=== PATIENT | male | born 1955 | race Caucasian/White ===

== ENCOUNTER 2017-08-21 07:33 | Inpatient (IN) | payer BC ==
[2017-08-21] MEDS ORDERED: VALACYCLOVIR 500 MG TAB ONE (08:13)
[2017-08-21] MEDS ORDERED: ASPIRIN 325 MG TAB ONE (08:33)
[2017-08-21] MEDS ORDERED: METOPROLOL TAR 50 MG TAB ONE (08:33)
[2017-08-21] MEDS ORDERED: ENOXAPARIN 100 MG/ML SYR SQ ONE (08:34)
[2017-08-21] MEDS ORDERED: METOPROLOL TARTRATE 5 MG/5 ML INJ IV ONE (08:34)
[2017-08-21] MEDS ORDERED: ENOXAPARIN 30 MG/0.3 ML SQ ONE (08:35)
[2017-08-21 08:47] LABS: Absolute Lymphocytes (CBC) 1.4 K/uL (0.7-4.9); Absolute Monocytes 0.6 K/uL (0.1-1.3); Absolute Neutrophil 4.6 K/uL (1.8-8.0); Basophils % 0.9 % (0-1.3); Eosinophils % 2.7 % (0-4.4); Hematocrit 41.2 % (39.6-49.0); Lymphocytes % 19.9 % (15.3-44.8); MCH 30.2 pg (27.0-35.0); MCV 91.4 fL (80-100); Monocytes % 9.2 % (3.3-12.3); RBC Red Blood Cell Count 4.51 M/uL (4.33-5.43)
[2017-08-21 08:49] LABS: Protime INR 0.92
[2017-08-21 09:14] LABS: Albumin 3.5 g/dL (3.4-5.0); Bilirubin Direct 0.1 mg/dL (0-0.2); Bilirubin Total 0.4 mg/dL (0.2-1.0); Magnesium 1.7 mg/dL (1.8-2.4); Potassium 3.8 mmol/L (3.5-5.1); Protein, Total 7.2 g/dL (6.4-8.2)
[2017-08-21 09:15] LABS: CKMB Creatine Kinase MB 10.3 ng/mL (0.3-3.6)
[2017-08-21] MEDS ORDERED: MAGNESIUM SULFATE 1 gm IVPB 1 GM/100 ML BAG IV ONE (09:45)
[2017-08-21] MEDS ORDERED: DIGOXIN 0.25 MG/ML AMP ONE (09:46)
--- NOTE | 2017-08-21 09:58 | RAD REPORT ---
EXAM DESCRIPTION: RAD - Chest Single View - 08/21/2017 8:49 am CLINICAL HISTORY: Tachycardia, shortness of breath COMPARISON: September 2010 TECHNIQUE: AP portable chest image was obtained 0844 hours . FINDINGS: No peripheral mass or consolidation. Lung markings are not significantly different from th e comparison. Heart and vasculature are normal. No measurable pleural effusion and no pneumothorax. N o gross bony abnormality seen. No acute aortic findings suspected. IMPRESSION: No acute cardiopulmonary process. Patient has a mild baseline interstitial pattern that is similar to the 2011 exam.
--- NOTE | 2017-08-21 10:23 | ER ---
Nurse's Notes [facility] Name: Rush Palomino Age: 62 yrs Sex: Male : 1955 Arrival Date: 08/21/2017 Time: 07:37 Bed 14 Private MD: out of town, doctor Diagnosis: Atrial fibrillation and flutter-new onset;Zoster [herpes zoster] Presentation: 08/21 07:46 Presenting complaint: Patient states: right eye swelling and redness that began Tuesday. aa5 Pt states "I also have some rash spots on my head so I my thinks it's shingles". 07:46 Transition of care: patient was not received from another setting of care. Onset of aa5 symptoms was July 2017. Risk Assessment: Do you want to hurt yourself or someone else? Patient reports no desire to harm self or others. Initial Sepsis Screen: Does the patient meet any 2 criteria? No. Patient's initial sepsis screen is negative. Does the patient have a suspected source of infection? No. Patient's initial sepsis screen is negative. Care prior to arrival: None. 07:46 Method Of Arrival: Ambulatory aa5 07:46 Acuity: JASKARAN 3 aa5 Historical: - Allergies: 07:46 No Known Allergies; aa5 - PMHx: 07:46 Diabetes - NIDDM; Gout; Hep C (completed treatment); aa5 - PSHx: 07:46 None; aa5 - Immunization history:: Adult Immunizations unknown. - Social history:: Smoking status: Patient/guardian denies using tobacco. - Ebola Screening: : No symptoms or risks identified at this time. Screenin:15 Abuse screen: Denies threats or abuse. Nutritional screening: No deficits noted. aa5 Tuberculosis screening: No symptoms or risk factors identified. Fall Risk None identified. Assessment: 07:50 General: Appears comfortable, Behavior is calm, cooperative. Pain: Complains of pain in aa5 top of head and right eye Pain radiates to right side of neck Pain currently is 2 out of 10 on a pain scale. Quality of pain is described as burning, Pain began 2-3 days ago. Is continuous. Neuro: Level of Consciousness is awake, alert, obeys commands, Oriented to person, place, time, situation. Cardiovascular: Denies chest pain, shortness of breath, Heart tones S1 S2 present Rhythm is regular. Respiratory: Airway is patent Respiratory effort is even, unlabored, Respiratory pattern is regular, symmetrical, Breath sounds are clear bilaterally. GI: Abdomen is obese, Bowel sounds present X 4 quads. Abd is soft and non tender X 4 quads. : No signs and/or symptoms were reported regarding the genitourinary system. EENT: No signs and/or symptoms were reported regarding the EENT system. Derm: Skin is pink, warm \\T\\ dry. Redness and swelling noted to right upper eyelid and 2 very small red raised areas noted to top of head. Musculoskeletal: Range of motion: intact in all extremities. 08:25 Reassessment: Patient and/or family updated on plan of care and expected duration. Pain aa5 level reassessed. Patient is alert, oriented x 3, equal unlabored respirations, skin warm/dry/pink. Cardiovascular: Rhythm is atrial flutter. 08:45 Reassessment: Patient and/or family updated on plan of care and expected duration. Pain aa5 level reassessed. Patient is alert, oriented x 3, equal unlabored respirations, skin warm/dry/pink. Cardiovascular: Rhythm is atrial flutter. 08:45 Pain: Pain currently is 2 out of 10 on a pain scale. aa5 09:40 Reassessment: Patient and/or family updated on plan of care and expected duration. Pain aa5 level reassessed. Patient is alert, oriented x 3, equal unlabored respirations, skin warm/dry/pink. A-fib on monitor, rhythm irregular . 11:00 Reassessment: Patient and/or family updated on plan of care and expected duration. Pain aa5 level reassessed. Patient is alert, oriented x 3, equal unlabored respirations, skin warm/dry/pink. 11:00 Reassessment: Awaiting eye exam by FLOOR COVERING PRINTER, pt notified of wait time. . Pain: Pain currently aa5 is 2 out of 10 on a pain scale. Cardiovascular: Rhythm is atrial fibrillation. 12:00 Reassessment: Patient and/or family updated on plan of care and expected duration. Pain aa5 level reassessed. Patient is alert, oriented x 3, equal unlabored respirations, skin warm/dry/pink. Patient denies pain at this time. 12:00 Cardiovascular: Rhythm is atrial fibrillation. aa5 13:00 Reassessment: Dr. Deng at bedside . aa5 13:06 Reassessment: Report given to CHERYL Miller. aa5 15:38 Reassessment: Patient appears in no apparent distress at this time. No changes from tl3 previously documented assessment. Patient and/or family updated on plan of care and expected duration. Pain level reassessed. Patient is alert, oriented x 3, equal unlabored respirations, skin warm/dry/pink. provided sandwich and drink for pt and . Vital Signs: 07:46 BP 130 / 88; Pulse 138; Resp 18 S; Temp 98.4(O); Pulse Ox 96% on R/A; Weight 125.65 kg aa5 (R); Height 6 ft. 1 in. (185.42 cm) (R); Pain 2/10; 08:39 BP 140 / 100; Pulse 136; Resp 16 S; Pulse Ox 96% on R/A; aa5 08:44 BP 113 / 79; Pulse 124; Resp 18 S; Pulse Ox 97% on R/A; aa5 08:55 BP 106 / 82; Pulse 115; Resp 16 S; Pulse Ox 96% on R/A; aa5 09:20 BP 114 / 85; Pulse 130; Resp 16 S; Pulse Ox 97% on R/A; aa5 09:40 Pulse 124; Resp 16 S; Pulse Ox 98% on R/A; aa5 10:05 BP 121 / 49; Pulse 82; Resp 14 S; Pulse Ox 97% on R/A; aa5 11:00 BP 139 / 76; Pulse 93; Resp 16 S; Pulse Ox 97% on R/A; aa5 12:00 BP 148 / 88; Pulse 92; Resp 16 S; Pulse Ox 97% on R/A; aa5 15:50 BP 141 / 92; Pulse 82; Resp 18; Pulse Ox 97% ; tl3 07:46 Body Mass Index 36.55 (125.65 kg, 185.42 cm) aa5 Visual Acuity: 12:05 Left Eye Visual acuity 20/30, ; Right Eye Visual acuity 20/20, ; Both Eyes Visual aa5 acuity 20/15; Without Lenses; ED Course: 07:37 Patient arrived in ED. mr 07:37 out of town, doctor is Private Physician. mr 07:46 Arm band placed on Patient placed in an exam room, on a stretcher. aa5 07:47 Joe Curry NP is PHCP. pm1 07:47 David Salinas MD is Attending Physician. pm1 07:50 Grace oLwe, CHERYL is Primary Nurse. aa5 08:00 Patient has correct armband on for positive identification. Placed in gown. Bed in low aa5 position. Call light in reach. Side rails up X2. security monitor on. Pulse ox on. NIBP on. 08:06 Triage completed. aa5 08:21 EKG done, by ED staff, reviewed by Joe Curry NP. jb1 08:25 Initial lab(s) drawn, by me, sent to lab. Inserted saline lock: 20 gauge in right aa5 forearm, using aseptic technique. Blood collected. 08:48 X-ray completed. Portable x-ray completed in exam room. Patient tolerated procedure la2 well. 08:49 XRAY Chest (1 view) In Process Unspecified. EDMS 08:55 No provider procedures requiring assistance completed. aa5 10:22 Manuela Metz MD is Hospitalizing Provider. pm1 11:50 Assist provider with eye exam of right eye. using fluorescein stain, Performed by aa5 Joe Curry NP Patient tolerated well. 11:51 Hospitalizing Provider role handed off by Manuela Metz MD pm1 11:51 Jacque Deng MD is Hospitalizing Provider. pm1 15:50 Patient admitted, IV remains in place. tl3 Administered Medications: 00:45 Drug: Lopressor 5 mg Route: IVP; Site: right forearm; aa5 08:15 Drug: Valtrex 1000 mg Route: PO; aa5 09:43 Follow up: Response: No adverse reaction aa5 08:33 Drug: Lovenox 1 mg/kg Route: Sub-Q; Site: right lower abdomen; aa5 09:43 Follow up: Response: No adverse reaction aa5 08:33 Drug: Lopressor (metoprolol TARTRATE) 50 mg Route: PO; aa5 09:43 Follow up: Response: No adverse reaction aa5 08:33 Drug: Aspirin 325 mg Route: PO; aa5 09:43 Follow up: Response: No adverse reaction aa5 08:35 Drug: Lopressor 5 mg Route: IVP; Site: right forearm; aa5 08:40 Drug: Lopressor 5 mg Route: IVP; Site: right forearm; aa5 09:00 Follow up: Response: No adverse reaction aa 09:40 Drug: Magnesium Sulfate 1 grams Route: IVPB; Infused Over: 1 hrs; Site: right forearm; aa5 10:40 Follow up: Response: No adverse reaction; IV Status: Completed infusion 09:43 Drug: Digoxin 0.5 mg Route: IVP; Site: right forearm; aa5 10:00 Follow up: Response: No adverse reaction aa5 11:50 Drug: Tetracaine Drops 0.5 % 1 drops {Note: administered by FLOOR COVERING PRINTER during eye exam.} Route: aa5 Ophthalmic; Site: right eye; Outcome: 10:22 Decision to Hospitalize by Provider. pm1 15:50 Admitted to Tele accompanied by tech, via wheelchair, with chart, Report called to nori3 CHERYL Whitaker 15:50 Condition: stable 15:50 Instructed on the need for admit, Demonstrated understanding of instructions. 15:52 Patient left the ED. tl3 Signatures: Dispatcher [employer] EDMS Robin Gee jb1 Leticia Mtz Audri, RN RN aa5 Joe Curry NP FLOOR COVERING PRINTER pm1 Fatoumata Maldonado la2 Angela Valle RN RN tl3 Corrections: (The following items were deleted from the chart) 12:16 07:50 Derm: Skin is pink, warm \\T\\ dry. aa5 aa5 15:50 15:38 BP 148 / 88; Pulse 48bpm; Resp 18bpm; Pulse Ox 97% RA; tl3 tl3
--- NOTE | 2017-08-21 10:23 | EDPHYS ---
Physician Documentation [facility] Name: Rush Palomino Age: 62 yrs Sex: Male : 1955 Arrival Date: 08/21/2017 Time: 07:37 Bed 14 Private MD: out of town, doctor ED Physician David Salinas HPI: 08/21 09:00 This 62 yrs old Male presents to ER via Ambulatory with complaints of Right pm1 Eye Swelling. 09:00 to the right eye, Swelling. Onset: The symptoms/episode began/occurred 2 day(s) ago. pm1 Duration: the symptoms are continuous. Aggravated by nothing. Alleviated by nothing. Associated signs and symptoms: Pertinent negatives: fever, visual changes. Patient does not utilize any form of vision correction. Severity of symptoms: in the emergency department the symptoms are worse. The patient has not experienced similar symptoms in the past. 3 months ago for unrelated complaint. Patient with swelling to right upper eyelid, facial pain, and rash on the right side of his scalp. Patient concerned that it might be shingles. No visual changes. No fever. Patient reported that at his PCP visit 3 months ago he was told that he had an elevated heart rate. He dismissed it due to running and rushing to his appointment. Has felt generalized weakness for the past 1 month and attributed it to getting older. Denies chest pain, shortness of breath, dizziness. Historical: - Allergies: 07:46 No Known Allergies; aa5 - PMHx: 07:46 Diabetes - NIDDM; Gout; Hep C (completed treatment); aa5 - PSHx: 07:46 None; aa5 - Immunization history:: Adult Immunizations unknown. - Social history:: Smoking status: Patient/guardian denies using tobacco. - Ebola Screening: : No symptoms or risks identified at this time. ROS: 09:00 Constitutional: Negative for fever, chills, and weight loss, ENT: Negative for injury, pm1 pain, and discharge, Neck: Negative for injury, pain, and swelling. 09:00 Respiratory: Negative for shortness of breath, cough, wheezing, and pleuritic chest pain, Abdomen/GI: Negative for abdominal pain, nausea, vomiting, diarrhea, and constipation, Back: Negative for injury and pain, : Negative for injury, bleeding, discharge, and swelling, MS/Extremity: Negative for injury and deformity, Skin: Negative for injury, rash, and discoloration. 09:00 Eyes: Positive for swelling, of the right upper eyelid, Negative for itching, matting, photophobia, redness, vision loss, visual disturbance. 09:00 Cardiovascular: Negative for chest pain, edema, orthopnea, palpitations. 09:00 Neuro: Positive for weakness, Negative for headache, numbness, seizure activity, syncope, near syncope. Exam: 09:00 Constitutional: This is a well developed, well nourished patient who is awake, alert, pm1 and in no acute distress. Head/Face: Normocephalic, atraumatic. ENT: Nares patent. No nasal discharge, no septal abnormalities noted. Tympanic membranes are normal and external auditory canals are clear. Oropharynx with no redness, swelling, or masses, exudates, or evidence of obstruction, uvula midline. Mucous membranes moist. Neck: Trachea midline, no thyromegaly or masses palpated, and no cervical lymphadenopathy. Supple, full range of motion without nuchal rigidity, or vertebral point tenderness. No Meningismus. 09:00 Chest/axilla: Normal chest wall appearance and motion. Nontender with no deformity. No lesions are appreciated. Cardiovascular: Regular rate and rhythm with a normal S1 and S2. No gallops, murmurs, or rubs. Normal PMI, no JVD. No pulse deficits. Respiratory: Lungs have equal breath sounds bilaterally, clear to auscultation and percussion. No rales, rhonchi or wheezes noted. No increased work of breathing, no retractions or nasal flaring. 09:00 Abdomen/GI: Soft, non-tender, with normal bowel sounds. No distension or tympany. No guarding or rebound. No evidence of tenderness throughout. Back: No spinal tenderness. No costovertebral tenderness. Full range of motion. Skin: Warm, dry with normal turgor. Normal color with no rashes, no lesions, and no evidence of cellulitis. MS/ Extremity: Pulses equal, no cyanosis. Neurovascular intact. Full, normal range of motion. 09:00 Eyes: Periorbital structures: appear normal, Pupils: no acute changes, equal, round, and reactive to light and accomodation, Extraocular movements: intact throughout, Conjunctiva: normal, no acute changes, Lids and lashes: edema, Right upper eyelid. 09:00 ECG was reviewed by the Attending Physician. aflutter 2:1 09:00 Neuro: Orientation: is normal, Motor: is normal, moves all fours. 11:45 Visual Acuity: I have reviewed the nursing documentation. pm1 11:45 Eyes: Corneas: abrasion, is not appreciated, foreign body, is not appreciated, a fluorescein strip employed to appreciate the findings, No lesions. No herpes simplex dendritic keratitis. Vital Signs: 07:46 BP 130 / 88; Pulse 138; Resp 18 S; Temp 98.4(O); Pulse Ox 96% on R/A; Weight 125.65 kg aa5 (R); Height 6 ft. 1 in. (185.42 cm) (R); Pain 2/10; 08:39 BP 140 / 100; Pulse 136; Resp 16 S; Pulse Ox 96% on R/A; aa5 08:44 BP 113 / 79; Pulse 124; Resp 18 S; Pulse Ox 97% on R/A; aa5 08:55 BP 106 / 82; Pulse 115; Resp 16 S; Pulse Ox 96% on R/A; aa5 09:20 BP 114 / 85; Pulse 130; Resp 16 S; Pulse Ox 97% on R/A; aa5 09:40 Pulse 124; Resp 16 S; Pulse Ox 98% on R/A; aa5 10:05 BP 121 / 49; Pulse 82; Resp 14 S; Pulse Ox 97% on R/A; aa5 11:00 BP 139 / 76; Pulse 93; Resp 16 S; Pulse Ox 97% on R/A; aa5 12:00 BP 148 / 88; Pulse 92; Resp 16 S; Pulse Ox 97% on R/A; aa5 15:50 BP 141 / 92; Pulse 82; Resp 18; Pulse Ox 97% ; tl3 07:46 Body Mass Index 36.55 (125.65 kg, 185.42 cm) aa5 Visual Acuity: 12:05 Left Eye Visual acuity 20/30, ; Right Eye Visual acuity 20/20, ; Both Eyes Visual aa5 acuity 20/15; Without Lenses; MDM: 08:01 Patient medically screened. pm1 08:21 Data reviewed: vital signs. Data interpreted: Pulse oximetry: on room air is 96 %. pm1 Interpretation: normal. 10:20 Counseling: I had a detailed discussion with the patient and/or guardian regarding: the pm1 historical points, exam findings, and any diagnostic results supporting the discharge/admit diagnosis, lab results, radiology results, the need for outpatient follow up, to return to the emergency department if symptoms worsen or persist or if there are any questions or concerns that arise at home. 11:51 Physician consultation: Jacque Deng MD was called at 11:51, was contacted at 11:51, pm1 regarding admission, patient's condition, and will see patient in ED. 08/21 08:02 Order name: Basic Metabolic Panel; Complete Time: 09:19 pm08/21 08:02 Order name: CBC with Diff; Complete Time: 09:19 pm08/21 08:02 Order name: Ckmb; Complete Time: 09:19 pm08/21 08:02 Order name: CPK; Complete Time: 09:19 pm08/21 08:02 Order name: LFT's; Complete Time: 09:19 pm08/21 08:02 Order name: Magnesium; Complete Time: 09:19 pm08/21 08:02 Order name: PT-INR; Complete Time: 09:19 pm08/21 08:02 Order name: Ptt, Activated; Complete Time: 09:19 pm08/21 08:02 Order name: Troponin (emerg Dept Use Only); Complete Time: 09:19 pm08/21 08:02 Order name: XRAY Chest (1 view); Complete Time: 10:03 pm08/21 08:02 Order name: EKG; Complete Time: 08:03 pm08/21 08:02 Order name: Cardiac monitoring; Complete Time: 08:09 pm08/21 08:02 Order name: EKG - Nurse/Tech; Complete Time: 08:21 pm08/21 08:02 Order name: IV Saline Lock; Complete Time: 08:48 pm08/21 08:02 Order name: Labs collected and sent; Complete Time: 08:48 pm08/21 08:02 Order name: O2 Per Protocol; Complete Time: 08:10 pm08/21 08:02 Order name: O2 Sat Monitoring; Complete Time: 08:09 pm08/21 10:25 Order name: Visual Acuity; Complete Time: 12:07 pm08/21 10:25 Order name: Eye Tray; Complete Time: 10:37 pm1 08/21 10:25 Order name: Fluoresene Opth strip; Complete Time: 10:37 pm1 08/21 13:48 Order name: Diet Regular; Complete Time: 13:49 tl3 Administered Medications: 00:45 Drug: Lopressor 5 mg Route: IVP; Site: right forearm; aa5 08:15 Drug: Valtrex 1000 mg Route: PO; aa5 09:43 Follow up: Response: No adverse reaction aa5 08:33 Drug: Lovenox 1 mg/kg Route: Sub-Q; Site: right lower abdomen; aa5 09:43 Follow up: Response: No adverse reaction aa5 08:33 Drug: Lopressor (metoprolol TARTRATE) 50 mg Route: PO; aa5 09:43 Follow up: Response: No adverse reaction aa5 08:33 Drug: Aspirin 325 mg Route: PO; aa5 09:43 Follow up: Response: No adverse reaction aa5 08:35 Drug: Lopressor 5 mg Route: IVP; Site: right forearm; aa5 08:40 Drug: Lopressor 5 mg Route: IVP; Site: right forearm; aa5 09:00 Follow up: Response: No adverse reaction aa5 09:40 Drug: Magnesium Sulfate 1 grams Route: IVPB; Infused Over: 1 hrs; Site: right forearm; aa5 10:40 Follow up: Response: No adverse reaction; IV Status: Completed infusion aa5 09:43 Drug: Digoxin 0.5 mg Route: IVP; Site: right forearm; aa5 10:00 Follow up: Response: No adverse reaction aa5 11:50 Drug: Tetracaine Drops 0.5 % 1 drops {Note: administered by SEISMOGRAPH OBSERVER during eye exam.} Route: aa5 Ophthalmic; Site: right eye; Disposition: 08/21/17 10:22 Hospitalization ordered by Jacque Deng for Inpatient Admission. Preliminary diagnosis are Atrial fibrillation and flutter - new onset, Zoster [herpes zoster]. - Bed requested for Telemetry/MedSurg (Inpatient). - Status is Inpatient Admission. tl3 - Condition is Stable. - Problem is new. - Symptoms have improved. UTI on Admission? No Addendum: 08/22/2017 16:10 Co-signature as Attending Physician, David Salinas MD I agree with the assessment and c to plan of care. Signatures: Dispatcher [employer] EDDavid Tanner MD MD cha Williams, Irene, RN RN iw Grace Lowe RN RN aa5 Joe Curry NP SEISMOGRAPH OBSERVER pm1 Angela Valle, RN RN tl3 Corrections: (The following items were deleted from the chart) 08/21 11:51 10:22 Hospitalization Ordered by Manuela Metz MD for Inpatient Admission. pm1 Preliminary diagnosis is Atrial fibrillation and flutter - new onset; Zoster [herpes zoster]. Bed requested for Telemetry/MedSurg (Inpatient). Status is Inpatient Admission. Condition is Stable. Problem is new. Symptoms have improved. UTI on Admission? No. pm1 13:24 11:51 08/21/2017 10:22 Hospitalization Ordered by Jacque Deng MD for Inpatient iw Admission. Preliminary diagnosis is Atrial fibrillation and flutter - new onset; Zoster [herpes zoster]. Bed requested for Telemetry/MedSurg (Inpatient). Status is Inpatient Admission. Condition is Stable. Problem is new. Symptoms have improved. UTI on Admission? No. pm1 15:52 13:24 08/21/2017 10:22 Hospitalization Ordered by Jacque Deng MD for Inpatient tl3 Admission. Preliminary diagnosis is Atrial fibrillation and flutter - new onset; Zoster [herpes zoster]. Bed requested for Telemetry/MedSurg (Inpatient). Status is Inpatient Admission. Condition is Stable. Problem is new. Symptoms have improved. UTI on Admission? No. iw
[2017-08-21] MEDS ORDERED: TETRACAINE HCL 0.5% 2ML OPTH ONE (10:26)
[2017-08-21] MEDS ORDERED: FLUORESCEIN SODIUM 0.6 MG/WRAP ONE (10:26)
--- NOTE | 2017-08-21 13:55 | P.HP ---
Certification for Inpatient Patient admitted to: Inpatient With expected LOS: >2 Midnights Patient will require the following post-hospital care: None Practitioner: I am a practitioner with admitting privileges, knowledge of patient current condition, hospital course, and medical plan of care. Services: Services provided to patient in accordance with Admission requirements found in Title 42 Section 412.3 of the Code of Federal Regulations Patient History Date of Service: 08/21/17 Primary Care Provider: PATTERN STAMPER at Dr [facility] Reason for admission: Afib with RVR History of Present Illness: 62 y/o M with PMHX of DM type 2 and gout who presented to the ER as he noticed swelling and redness of the right eye orbit. Pt states that he thought it was shingles and thus decided to come to the ER. the Swelling and redness started about 2 to 3 days ago and now started having pain there as well. Pt also complains of having generalized weakness for over 2 to 3 weeks and states he went to go f.u with PCP 1 week ago and had lab test done which were consistent with Low testosterone and thus was started on that. No other complains to offer. In the ER pt was found to have Afib with RVR and thus Medicine was consulted to admit the patient for further care. Allergies No Known Allergies Allergy (Unverified 08/21/17 12:31) Home medications list reviewed: Yes - Past Medical/Surgical History Has patient received pneumonia vaccine in the past: No Diabetic: Yes -: Gout -: Type 2 Dm -: None - Family History Family History: Reviewed- Non-Contributory - Social History Smoking Status: Never smoker Alcohol use: No Caffeine use: No Place of Residence: Home Review of Systems General: As per HPI Physical Examination - Physical Exam General: Alert, In no apparent distress HEENT: Atraumatic, Other (Right eye with Swelling and redness. No vesicle noted. ) Respiratory: Clear to auscultation bilaterally, Normal air movement Cardiovascular: Normal S1 S2, Abnormal pulses, Irregular heart rate/rhythm Gastrointestinal: Normal bowel sounds, Soft and benign, Non-distended, No tenderness Musculoskeletal: No tenderness Integumentary: No rashes Neurological: Normal gait, Normal speech, Normal strength at 5/5 x4 extr, Normal tone, Normal affect Lymphatics: No axilla or inguinal lymphadenopathy - Studies Laboratory Data (last 24 hrs) 06/24/18 08:25: PT 10.9, INR 0.92, APTT 26.1 08/21/17 08:25: WBC 6.9, Hgb 13.6, Hct 41.2, Plt Count 187 08/21/17 08:25: Sodium 136, Potassium 3.8, BUN 14, Creatinine 1.00, Glucose 262 H, Magnesium 1.7 L, Total Bilirubin 0.4, AST 29, ALT 40, Alkaline Phosphatase 44 L Assessment and Plan - Problems (Diagnosis) (1) Atrial fibrillation with RVR Current Visit: Yes Status: Acute Plan: New onset Afib with RVR. -S/P Lopressor and digoxin in the ER. Which helped control the rate but patient still remains in Afib. -Cardiology consulted. Appreciated Reccs -Echo -Metoprolol 50mg BID -Digoxin 0.25mg Daily -Lovenox BID -Cardiac Tele -Monitor for 24 hrs. (2) Shingles Current Visit: Yes Status: Acute Plan: Shingles on the right eye -Acyclovir 800mg 5xday -Gabapentin for pain. Qualifiers: Herpes zoster complications: without complications Qualified Code(s): B02.9 - Zoster without complications (3) Gout Current Visit: Yes Status: Chronic Plan: Will Restart home medication Qualifiers: Gout site: unspecified site Chronicity: unspecified (4) Diabetes Current Visit: Yes Status: Chronic Plan: ISS for now Qualifiers: Diabetes mellitus type: type 2 Diabetes mellitus chcf insulin use: without regulatory attorney use Diabetes mellitus complication status: without complication Qualified Code(s): E11.9 - Type 2 diabetes mellitus without complications (5) Obesity Current Visit: Yes Status: Chronic Plan: Educated on Diet and exercise Qualifiers: Obesity type: due to excess calories Serious obesity comorbidity presence: without serious comorbidity Discharge Plan: Home Plan to discharge in: 48 Hours - Advance Directives Does patient have a Living Will: No Does patient have a Durable POA for Healthcare: No - Code Status/Comfort Care Code Status Assessed: Yes Critical Care: No
[2017-08-21] MEDS ORDERED: ONDANSETRON 4 MG/2 ML VIAL IV PRN (16:31)
[2017-08-21 17:32] LABS: CKMB Creatine Kinase MB 8.2 ng/mL (0.3-3.6); Thyroid Stimulating Hormone 1.61 uIU/mL (0.36-3.74)
[2017-08-21] MEDS: INSULIN -REGULAR HUMAN 50 UNIT/0.5 ML ML SQ SCH ×2 (17:33→21:49)
[2017-08-21] MEDS: NA CHLORIDE 0.9% 1,000 ML IV SCH (17:35)
[2017-08-21] MEDS: ACYCLOVIR 400 MG TABLET PO SCH ×2 (17:37→20:38)
[2017-08-21] MEDS: METOPROLOL XL 50 MG TAB PO SCH (17:38)
[2017-08-21] MEDS: ACETAMINOPHEN 500 MG TAB PO PRN (18:40)
[2017-08-21] MEDS: GABAPENTIN 300 MG CAP PO SCH (20:38)
[2017-08-21 21:29] LABS: Urine Appearance CLEAR; Urine Bilirubin NEGATIVE (NEG); Urine Blood NEGATIVE (NEG); Urine Color YELLOW; Urine Glucose NEGATIVE (NEG); Urine Protein NEGATIVE (NEG); Urine Specific Gravity 1.025 (1.005-1.030)
[2017-08-21 21:32] LABS: Urine Microscopic Reflex NO UMIC
[2017-08-22 02:09] LABS: CKMB Creatine Kinase MB 8.5 ng/mL (0.3-3.6)
[2017-08-22] MEDS: NA CHLORIDE 0.9% 1,000 ML IV SCH ×3 (03:03→20:37)
[2017-08-22 04:20] LABS: Absolute Monocytes 0.6 K/uL (0.1-1.3); Absolute Neutrophil 3.5 K/uL (1.8-8.0); Basophils % 0.9 % (0-1.3); Eosinophils % 3.2 % (0-4.4); Hematocrit 40.9 % (39.6-49.0); Lymphocytes % 31.5 % (15.3-44.8); MCH 30.1 pg (27.0-35.0); MCV 92.2 fL (80-100); MPV 11.1 fL (7.6-11.3); Monocytes % 9.9 % (3.3-12.3); RBC Red Blood Cell Count 4.44 M/uL (4.33-5.43)
[2017-08-22 04:36] LABS: Albumin 3.4 g/dL (3.4-5.0); Bilirubin Total 0.4 mg/dL (0.2-1.0); Magnesium 1.7 mg/dL (1.8-2.4); Phosphorus 3.3 mg/dL (2.5-4.9); Potassium 3.9 mmol/L (3.5-5.1)
[2017-08-22] MEDS: METOPROLOL XL 50 MG TAB PO SCH (05:56)
[2017-08-22] MEDS ORDERED: MAGNESIUM SULFATE 1 gm IVPB 1 GM/100 ML BAG IV ONE (06:00)
[2017-08-22] MEDS ORDERED: POTASSIUM 25 MEQ EFFERV TAB PO ONE (06:00)
--- NOTE | 2017-08-22 06:54 | EKG ---
Test Date: 2017-08-21 Test Time: 08:14:24 Physician Recruiter: NANCY MEASUREMENT RESULTS: Intervals: Rate: 141 DC: QRSD: 144 QT: 330 QTc: 505 [place]: P: DC: QRS: -38 T: -34 INTERPRETIVE STATEMENTS: Atrial flutter with 2:1 AV conduction Left axis deviation Right bundle branch block Abnormal ECG Compared to ECG 10/15/2010 16:45:11 Left-axis deviation now present Right bundle-branch block now present Sinus rhythm no longer present Electronically Signed On 08-22-17 06:53:25 CDT by Dieter Chambers
[2017-08-22] MEDS: INSULIN -REGULAR HUMAN 50 UNIT/0.5 ML ML SQ SCH ×4 (08:23→20:37)
[2017-08-22] MEDS: ACYCLOVIR 400 MG TABLET PO SCH ×5 (08:23→20:38)
[2017-08-22] MEDS: MONTELUKAST 10 MG TAB PO SCH (08:23)
[2017-08-22] MEDS: ALLOPURINOL 100 MG TAB PO SCH (08:24)
[2017-08-22] MEDS: ASPIRIN 81 MG CHEWABLE TABLET PO SCH (08:24)
[2017-08-22] MEDS ORDERED: DIGOXIN 0.25 MG TABLET PO SCH (09:00)
[2017-08-22 09:31] LABS: CKMB Creatine Kinase MB 7.4 ng/mL (0.3-3.6)
--- NOTE | 2017-08-22 09:33 | EKG ---
Test Date: 2017-08-22 Test Time: 01:44:41 Lip Cutter And Scorer: RT [place] MEASUREMENT RESULTS: Intervals: Rate: 108 [place]: QRSD: 154 QT: 402 QTc: 538 [place]: P: NV: QRS: -20 T: 50 INTERPRETIVE STATEMENTS: Atrial flutter with variable block Right bundle branch block Abnormal ECG Compared to ECG 08/21/2017 09:55:16 Left ventricular hypertrophy no longer present Electronically Signed On 08-22-17 09:33:02 CDT by Dieter Chambers
--- NOTE | 2017-08-22 09:34 | EKG ---
Test Date: 2017-08-21 Test Time: 09:55:16 Compressor Engineer: HENNY MEASUREMENT RESULTS: Intervals: Rate: 102 MT: QRSD: 146 QT: 386 QTc: 503 [place]: P: MT: QRS: -31 T: 6 INTERPRETIVE STATEMENTS: Atrial flutter with variable AV block Left axis deviation Right bundle branch block Moderate voltage criteria for LVH, may be normal variant Abnormal ECG Compared to ECG 08/21/2017 08:14:24 Left ventricular hypertrophy now present Electronically Signed On 08-22-17 09:33:34 CDT by Dieter Chambers
--- NOTE | 2017-08-22 12:16 | CON ---
Chief Complaint: Pain to the right eye. Reason For Cardiology Consult: Atrial flutter. History Of Present Illness: Mr. Palomino was in our emergency room for an entirely different reason. He had no cardiac symptoms at all, but he was found to have a heart rate of 150. He was in atrial flut ter with 2:1 block. After receiving digoxin and metoprolol, his heart rate slowed, variable block an d went into a sinus rhythm at about 9:00 on Tuesday, the 22 of August. He had no idea how long he had been in AFib or flutter, but now that he is in sinus rhythm, we will initiate antiarrhythmic drug th erapy to maintain sinus rhythm and anticoagulation with rivaroxaban. He has been anticoagulated with Lovenox since we know that he came to the hospital. The medicines he was given would not be normall y expected to change the rhythm to sinus. We have no idea what his status with the atria are, how lo ng he has been in AFib, but he would be considered a fairly high risk patient with both age and obesi ty and diabetes or all of the above making him at least mid-level CHADS-Vasc score patient. Anticoag ulation is clearly indicated. Now that, he is in sinus rhythm, we will initiate therapy with Betapac e 80 b.i.d., and Xarelto 20 mg a day at suppertime. He has no history of bleeding. No history of my ocardial infarction or stroke. He has hypertension and diabetes and gout. Outpatient Medications: Gabapentin, aspirin Singulair, allopurinol, and metformin. Social History: He uses no tobacco. No illegal drugs. Occasional alcohol. Physical Examination: Vital Signs: Height 6 feet 1 inch, 273 pounds, body mass index 36. HEENT: Normal. Lungs: Clear. Heart: Within normal limits. Abdomen: Soft. Extremities: Normal. Normal distal pulses. His electrocardiogram showed atrial flutter, variable AV block or 2:1 block. Now that he is in sinus rhythm, an EKG is pending, but not done yet. He has a right bundle-branch block. Impression: My impression is the patient has a symptomatic atrial flutter. We will initiate antiarr hythmic drug therapy to maintain sinus rhythm. Anticoagulation reduces the risk of stroke. If he to lerates Betapace by his second dose tomorrow morning, I think he could be discharged. We will get an EKG in the morning, make sure that QT interval is not prolonged. SAM/MARCIN Voice ID: [id number] Report ID: [id number]
--- NOTE | 2017-08-22 12:56 | EKG ---
Test Date: 2017-08-22 Test Time: 09:49:01 Vice President Tax: LAW MEASUREMENT RESULTS: Intervals: Rate: 65 ME: 196 QRSD: 158 QT: 432 QTc: 449 [place]: P: 26 ME: 196 QRS: -21 T: -5 INTERPRETIVE STATEMENTS: Normal sinus rhythm Right bundle branch block Minimal voltage criteria for LVH, may be normal variant Abnormal ECG Compared to ECG 08/22/2017 01:44:41 Left ventricular hypertrophy now present Atrial flutter no longer present Electronically Signed On 08-22-17 12:55:58 CDT by Dieter Chambers
--- NOTE | 2017-08-22 15:23 | PN ---
Date of Progress Note: 08/22/2017 Subjective: The patient seen and examined, chart reviewed, and case discussed with RN and Dr. Chambers . The patient denies any chest pain. Does report some generalized weakness. Review of Systems: Negative except as above. Medications: Reviewed. Objective: Vital signs: Temperature 98.4, heart rate 69, blood pressure 122/55, respirations 18, an d O2 96% on room air. General: Awake, alert, oriented x3, in some mild distress due to shingles lesion. Denies any chest pain. CV: S1 and S2. Regular rate and rhythm. Peripheral pulses present. Respiratory: Clear to auscultation bilaterally. No wheezing. No stridor. Gastrointestinal: Abdomen is soft, nontender, nondistended. Positive bowel sounds. Extremities: No clubbing, cyanosis, or edema. Neurologic: Nonfocal. Skin: shingles lesions on the right side of the face, not involving the eyes. Laboratory Data: Sodium 140, potassium 3.9, chloride 105, CO2 28, BUN 15, creatinine 0.9, glucose 15 3, calcium 8.5, phosphorus 3.3, and magnesium 1.7. Troponin less than 0.02. WBC 6.4, H and H 13.4, 40.9, and platelets 177. EKG shows atrial flutter with variable block, rate of 108, right bundle-bra nch block. Assessment And Plan: A 62-year-old male with; 1.Atrial fibrillation with rapid ventricular response. The patient goes back and forth between atri al fibrillation and atrial flutter. The patient's medications have been adjusted. Appreciate Dr. Boby armas' input. We will start on Betapace. Digoxin and metoprolol have been held. Echocardiogram pend ing. We will continue with anticoagulation. We will start on Xarelto. 2.Shingles on the right side. We will continue with acyclovir 800 mg 5 times per day. Continue montserrat apentin for pain. No complications. 3.Gout. Continue home medications. 4.Obesity, body mass index 36.1. 5.Right bundle-branch block. 6.Diabetes mellitus type 2, without long-term use of insulin with hyperglycemia. 7.Gastrointestinal and deep venous thrombosis prophylaxis, addressed. Plan: We will monitor on Betapace. Follow up with Cardiology recommendations. /MARCIN Voice ID: [id number] Report ID: [id number]
--- NOTE | 2017-08-22 15:30 | ECHO ---
HEIGHT: 6 ft 1 in WEIGHT: 273 lb 4 oz DATE OF STUDY: 08/22/[address]: Jacque Deng MD 2-DIMENSIONAL: YES M.MODE: YES DOPPLER: YES COLOR FLOW: YES TDS: YES PORTABLE: NO DEFINITY: NO BUBBLE STUDY: NO DIAGNOSIS: ATRIAL FIBRILLATION WITH RAPID VENTRICULAR RESPONSE CARDIAC HISTORY: CATHERIZATION: NO SURGERY: NO PROSTHETIC VALVE: NO PACEMAKER: NO MEASUREMENTS (cm) DIASTOLIC (NORMALS) SYSTOLIC (NORMALS) IVSd 1.0 (0.6-1.2) LA Diam 4.7 (1.9-4.0) LVEF 57% LVIDd 4.8 (3.5-5.7) LVIDs 3.4 (2.0-3.5) %FS 30% LVPWd 1.1 (0.6-1.2) Ao Diam 3.6 (2.0-3.7) 2 DIMENSIONAL ASSESSMENT: RIGHT ATRIUM: NORMAL LEFT ATRIUM: DILATED RIGHT VENTRICLE: NORMAL LEFT VENTRICLE: NORMAL TRICUSPID VALVE: NORMAL MITRAL VALVE: NORMAL PULMONIC VALVE: NORMAL AORTIC VALVE: NORMAL PERICARDIAL EFFUSION: NONE AORTIC ROOT: NORMAL LEFT VENTRICULAR WALL MOTION: NORMAL DOPPLER/COLOR FLOW: MILD TRICUSPID REUGURGITATION. NORMAL RIGHT VENTRICULAR SYSTOLIC PRESSURE. COMMENTS: NORMAL LEFT VENTRICULAR EJECTION FRACTION. DILATED LEFT ATRIUM. MILD TRICUSPID REGURGITATION. TECHNOLOGIST: DONNA DAVIES
[2017-08-22] MEDS ORDERED: RIVAROXABAN 20 MG TABLET PO SCH (17:00)
[2017-08-22] MEDS: SOTALOL HCL 80 MG TAB PO SCH (17:20)
[2017-08-22] MEDS: ACETAMINOPHEN 500 MG TAB PO PRN (20:36)
[2017-08-22] MEDS: GABAPENTIN 300 MG CAP PO SCH (20:37)
[2017-08-23 06:03] LABS: Absolute Lymphocytes (CBC) 1.8 K/uL (0.7-4.9); Absolute Monocytes 0.7 K/uL (0.1-1.3); Basophils % 0.8 % (0-1.3); Hematocrit 37.5 % (39.6-49.0); Lymphocytes % 26.8 % (15.3-44.8); MCH 30.8 pg (27.0-35.0); MCV 93.1 fL (80-100); MPV 11.1 fL (7.6-11.3); Monocytes % 9.9 % (3.3-12.3); RBC Red Blood Cell Count 4.03 M/uL (4.33-5.43)
[2017-08-23 06:26] LABS: Albumin 3.5 g/dL (3.4-5.0); Bilirubin Total 0.4 mg/dL (0.2-1.0); Phosphorus 3.2 mg/dL (2.5-4.9); Potassium 4.9 mmol/L (3.5-5.1); Protein, Total 7.1 g/dL (6.4-8.2)
[2017-08-23] MEDS: SOTALOL HCL 80 MG TAB PO SCH (06:35)
[2017-08-23] MEDS: INSULIN -REGULAR HUMAN 50 UNIT/0.5 ML ML SQ SCH ×2 (08:18→12:23)
[2017-08-23] MEDS: MONTELUKAST 10 MG TAB PO SCH (08:19)
[2017-08-23] MEDS: ALLOPURINOL 100 MG TAB PO SCH (08:19)
[2017-08-23] MEDS: ACYCLOVIR 400 MG TABLET PO SCH ×2 (08:19→12:23)
[2017-08-23] MEDS: ASPIRIN 81 MG CHEWABLE TABLET PO SCH (08:19)
--- NOTE | 2017-08-23 11:09 | PN ---
Date of Progress Note: 08/23/[address] Deng on 08/21/2017. Dr. Chambers started Mr. Palomino on Betapace yesterday because of at rial flutter. He has been in normal rhythm to sinus bradycardia since. We will send him home on Bet apace and Xarelto. We will set him up for an outpatient stress and he will see us in the near future . CHINTAN/MARCIN Voice ID: [id number] Report ID: [id number]
--- NOTE | 2017-08-23 15:41 | EKG ---
Test Date: 2017-08-23 Test Time: 07:46:41 Dyslexia Teacher: LAW MEASUREMENT RESULTS: Intervals: Rate: 49 DC: 218 QRSD: 154 QT: 496 QTc: 448 [place]: P: 17 DC: 218 QRS: -20 T: -3 INTERPRETIVE STATEMENTS: Marked sinus bradycardia with 1st degree AV block Right bundle branch block Minimal voltage criteria for LVH, may be normal variant Abnormal ECG Compared to ECG 08/22/2017 09:49:01 First degree AV block now present Sinus rhythm no longer present Electronically Signed On 08-23-17 15:40:28 CDT by Chirag Mayorga
--- NOTE | 2017-08-23 18:57 | DS ---
Date of Discharge: 08/23/2017 Consultants: Dieter Chambers M.D. with Cardiology. Admitting Diagnoses: 1.Atrial fibrillation with rapid ventricular rate. 2.Shingles. 3.Gout. 4.Diabetes mellitus type 2. 5.Obesity. Discharge Diagnoses: 1.Atrial fibrillation with rapid ventricular rate, now back to sinus rhythm. 2.Shingles, treated with acyclovir. 3.Obesity, BMI 36. 4.Gout. 5.Right bundle branch block. 6.Diabetes mellitus type 2 without long-term use of insulin with hyperglycemia. Hospital Course: The patient is a 62-year-old male, who came in to the ER for redness and swelling o f the right eye around the orbit. He was thought to have shingles. The patient therefore was admitt ed to the hospital. He was found to have atrial fibrillation with rapid ventricular response. He was started on Lopressor and digoxin. However, still was in atrial fibrillation. The patient's medicat ions were adjusted. Cardiology was consulted and he was seen by Dr. Chambers. The patient was switche d over to sotalol, and digoxin and metoprolol were discontinued. The patient was started on Lovenox full dose due to his CHADS-VASc score being elevated and being at risk for stroke. The patient will continue with acyclovir for his shingles and gabapentin for his neuropathic pain. The patient then e ventually converted to sinus rhythm and was well controlled with sotalol. The patient tolerated the medication well. He had an echocardiogram done, which showed EF of 57%. He was then cleared for dis charge from Cardiology standpoint. Regarding his shingles, the patient was instructed to follow up w ith an optical glass etcher to have his eye examined. He will be on famciclovir for the next 7 days to co mplete treatment. Followup: He will need to follow up with Cardiology, Dr. Chambers, in 2 weeks. Follow up with PCP in 2-3 days. Return to ER for worsening condition. Medications: As per medication reconciliation list. The patient will be anticoagulated with Xarelto . Activity: As tolerated. Diet: Diabetic. Total time spent discharging the patient was 37 minutes. Physical Examination: General: Awake, alert, and oriented, in no acute distress. CV: S1 and S2. No murmurs. Respiratory: Moving air well bilaterally. Abdomen: Soft, nontender, nondistended. Positive bowel sounds. Extremities: No clubbing, cyanosis, or edema. Neurologic: Nonfocal. Skin: Shingles. Lesion on the right side of the face. /MARCIN Voice ID: [id number] Report ID: [id number]
== END 2017-08-23 14:00 | disposition home or self-care (01) | DRG 310 ==
LOC: ER 07:33 → 4TH 16:01
PROVIDERS: ADMIT Family Medicine; ATTEND Family Medicine
DX: I48.91 Unspecified atrial fibrillation (principal); B02.9 Zoster without complications; I48.92 Unspecified atrial flutter; M10.9 Gout, unspecified; E11.65 Type 2 diabetes mellitus with hyperglycemia; Z68.36 Body mass index [BMI] 36.0-36.9, adult; I45.10 Unspecified right bundle-branch block; E66.09 Other obesity due to excess calories; B18.2 Chronic viral hepatitis C
CPT/HCPCS: 36415; 71045; 80048; 80053; 80076; 81003; 82550; 82553; 82962; 83735; 84100; 84443; 84484; 85025; 85610; 85730; 93005; 93306; 94760; 96365; 96372; 96375; 99285; J1160; J1650; J3475; J7030

== ENCOUNTER 2017-10-02 08:38 | Emergency (ER) | payer BC ==
[2017-10-02] MEDS ORDERED: IBUPROFEN 400 MG TAB ONE (09:25)
[2017-10-02] MEDS ORDERED: HYDROCODONE/APAP 10/325 TAB ONE (09:25)
--- NOTE | 2017-10-02 10:18 | RAD REPORT ---
EXAM DESCRIPTION: RAD - Ankle Left 3 View -10/02/2017 10:02 am CLINICAL HISTORY: Left ankle pain status post fall FINDINGS: A mildly displaced oblique fracture involves the lateral malleolus. A 6 millimeter bony de nsity lies adjacent to the medial malleolus with a corticated border. It has more of the appearance o f being chronic than acute. The medial clear space is widened probably indicating an injury to the deltoid ligament A 15 x 3 millimeter bony density lies inferior to the cuboid. It probably is chronic. It should be co rrelated clinically to see if patient has point tenderness to suggest an acute process
--- NOTE | 2017-10-02 10:22 | RAD REPORT ---
EXAM DESCRIPTION: RAD - Knee Left 3 View - 10/02/2017 10:02 am CLINICAL HISTORY: Left knee pain status post injury FINDINGS: A 7 millimeter round bony density lies medial to the medial femoral condyle. It probably i s chronic. Osteoarthritis involves the patellofemoral compartment and medial compartments. No acute fracture or dislocation is seen. If the patient continues have symptoms to suggest an acute fracture, ligamentous or meniscal injury t hen MRI would be recommended
--- NOTE | 2017-10-02 10:33 | EDPHYS ---
Physician Documentation [facility] Name: Rush Palomino Age: 62 yrs Sex: Male : 1955 Arrival Date: 10/02/2017 Time: 08:41 Bed 16 Private MD: Marcello Mcdermott H ED Physician David Salinas HPI: 10/02 10:12 This 62 yrs old Male presents to ER via Wheelchair with complaints of Ankle jr8 Injury. 10:12 The patient presents with decreased range of motion, pain, swelling, tenderness. The jr8 complaints affect the left ankle. Onset: The symptoms/episode began/occurred acutely, today. Context: The problem was sustained outdoors, resulted from the patient falling, the patient tripping. Associated signs and symptoms: The patient has no apparent associated signs or symptoms. Modifying factors: The symptoms are alleviated by nothing, the symptoms are aggravated by weight bearing, movement. Severity of symptoms: At their worst the symptoms were moderate, in the emergency department the symptoms are unchanged. The patient has not experienced similar symptoms in the past. The patient has not recently seen a physician. stated that he stepped on uneven lenard region while fishing. Caused him to fall twisting his ankle and landing on left knee. Pain since then . Historical: - Allergies: 09: No Known Allergies; tw2 - Home Meds: 09: gabapentin 300 mg oral cap 1 cap 3 times per day [Active]; allopurinol 300 mg Oral tab tw2 1 tab once daily [Active]; Xarelto 20 mg oral tab 1 tab once daily [Active]; sotalol 80 mg Oral tab 1 tab 2 times per day [Active]; montelukast 5 mg oral chew 2 tabs once daily [Active]; metformin 500 mg Oral Tb24 2 tabs 2 times per day [Active]; testosterone cream [Active]; - PMHx: 09:01 Diabetes - NIDDM; Gout; Hep C (completed treatment); Atrial Fib; tw2 - PSHx: 09: None; tw2 - Immunization history:: Adult Immunizations not up to date. - Social history:: Smoking status: Patient/guardian denies using tobacco, Patient uses alcohol, occasionally. - Ebola Screening: : Patient denies travel to an Ebola-affected area in the 21 days before illness onset. ROS: 10:12 Eyes: Negative for injury, pain, redness, and discharge, ENT: Negative for injury, jr8 pain, and discharge, Neck: Negative for injury, pain, and swelling, Cardiovascular: Negative for chest pain, palpitations, and edema, Respiratory: Negative for shortness of breath, cough, wheezing, and pleuritic chest pain, Abdomen/GI: Negative for abdominal pain, nausea, vomiting, diarrhea, and constipation, Back: Negative for injury and pain, Skin: Negative for injury, rash, and discoloration, Neuro: Negative for headache, weakness, numbness, tingling, and seizure. 10:12 MS/extremity: Positive for decreased range of motion, pain, swelling, tenderness, of the left ankle and left knee. Exam: 10:12 Head/Face: Normocephalic, atraumatic. Eyes: Pupils equal round and reactive to light, jr8 extra-ocular motions intact. Lids and lashes normal. Conjunctiva and sclera are non-icteric and not injected. Cornea within normal limits. Periorbital areas with no swelling, redness, or edema. ENT: Nares patent. No nasal discharge, no septal abnormalities noted. Tympanic membranes are normal and external auditory canals are clear. Oropharynx with no redness, swelling, or masses, exudates, or evidence of obstruction, uvula midline. Mucous membranes moist. Neck: Trachea midline, no thyromegaly or masses palpated, and no cervical lymphadenopathy. Supple, full range of motion without nuchal rigidity, or vertebral point tenderness. No Meningismus. Chest/axilla: Normal chest wall appearance and motion. Nontender with no deformity. No lesions are appreciated. Cardiovascular: Regular rate and rhythm with a normal S1 and S2. No gallops, murmurs, or rubs. Normal PMI, no JVD. No pulse deficits. Respiratory: Lungs have equal breath sounds bilaterally, clear to auscultation and percussion. No rales, rhonchi or wheezes noted. No increased work of breathing, no retractions or nasal flaring. Abdomen/GI: Soft, non-tender, with normal bowel sounds. No distension or tympany. No guarding or rebound. No evidence of tenderness throughout. Back: No spinal tenderness. No costovertebral tenderness. Full range of motion. Skin: Warm, dry with normal turgor. Normal color with no rashes, no lesions, and no evidence of cellulitis. Neuro: Awake and alert, GCS 15, oriented to person, place, time, and situation. Cranial nerves II-XII grossly intact. Motor strength 5/5 in all extremities. Sensory grossly intact. Cerebellar exam normal. Normal gait. 10:12 Musculoskeletal/extremity: Extremities: grossly normal except: noted in the left ankle: decreased ROM, pain, swelling, tenderness, noted in the left knee: pain, tenderness, ROM: full active range of motion, limited passive range of motion, in the left ankle due to pain, limited active range of motion due to pain, limited passive range of motion due to pain, Circulation is intact in all extremities. Sensation intact. Vital Signs: 08:58 BP 121 / 100; Pulse 121; Resp 18; Temp 98.8(O); Pulse Ox 96% ; Weight 122.47 kg (R); tw2 Height 6 ft. 1 in. (185.42 cm); Pain 10/10; 09:23 BP 129 / 89; Pulse 111; tw2 10:22 BP 114 / 87; Pulse 122; Resp 18; Pulse Ox 97% on R/A; Pain 8/10; tw2 08:58 Body Mass Index 35.62 (122.47 kg, 185.42 cm) tw2 Procedures: 10:30 Splinting: Splint applied to left ankle using Orthoglass splint, applied by techToo jean Examined by me, post splint application: neurovascular intact, 2+ distal pulses palpable, brisk capillary refill noted, Patient tolerated well. Crutch training provided to patient and/or family. Return demonstration given. MDM: 08:51 Patient medically screened. jr8 10:30 Data reviewed: vital signs, nurses notes, radiologic studies, plain films, and as a jr8 result, I will discharge patient. Data interpreted: Pulse oximetry: on room air is 97 %. Interpretation: normal. Counseling: I had a detailed discussion with the patient and/or guardian regarding: the historical points, exam findings, and any diagnostic results supporting the discharge/admit diagnosis, radiology results, the need for outpatient follow up, a orthopedic surgeon, to return to the emergency department if symptoms worsen or persist or if there are any questions or concerns that arise at home. 10/02 09:14 Order name: XRAY Ankle LEFT 3 view; Complete Time: 10:33 jr8 10/02 09:14 Order name: XRAY Knee LEFT 3 view; Complete Time: 10:33 jr8 10/02 10:18 Order name: Short Leg Splint; Complete Time: 10:40 jr8 10/02 10:18 Order name: Crutches; Complete Time: 10:40 jr8 Administered Medications: 09:22 Drug: Rudolph 10 mg-325 mg 1 tabs Route: PO; tw2 10:40 Follow up: Response: No adverse reaction tw2 09:22 Drug: Ibuprofen 800 mg Route: PO; tw2 10:41 Follow up: Response: No adverse reaction tw2 Disposition: 10/02/17 10:32 Discharged to Home. Impression: Lateral Malleolus Fracture of left ankle . - Condition is Stable. - Discharge Instructions: Ankle Fracture. - Prescriptions for Ibuprofen 800 mg Oral Tablet - take 1 tablet by ORAL route every 12 hours As needed take with food; 20 tablet. Tylenol- Codeine #3 300-30 mg Oral Tablet - take 2 tablets by ORAL route every 6 hours As needed; 20 tablet. - Medication Reconciliation Form, Thank You Letter, Antibiotic Education, Prescription Opioid Use form. - Follow up: Harjit Mancini MD; When: 5 - 6 days; Reason: Recheck today's complaints, Continuance of care, Re-evaluation by your physician. - Problem is new. - Symptoms have improved. Addendum: 10/03/2017 14:12 Co-signature as Attending Physician, David Salinas MD I agree with the assessment and c to plan of care. Signatures: Dispatcher [employer] EDND David Salinas MD MD cha Roszak, Josh, PA PA jr8 Pauline Moulton, RN RN tw2 Corrections: (The following items were deleted from the chart) 10/02 10:43 10:32 10/02/2017 10:32 Discharged to Home. Impression: Lateral Malleolus Fracture of tw2 left ankle . Condition is Stable. Forms are Medication Reconciliation Form, Thank You Letter, Antibiotic Education, Prescription Opioid Use. Follow up: Harjit Mancini; When: 5 - 6 days; Reason: Recheck today's complaints, Continuance of care, Re-evaluation by your physician. Problem is new. Symptoms have improved. jr8
--- NOTE | 2017-10-02 10:33 | ER ---
Nurse's Notes [facility] Name: Rush Palomino Age: 62 yrs Sex: Male : 1955 Arrival Date: 10/02/2017 Time: 08:41 Bed 16 Private MD: Marcello Mcdermott H Diagnosis: Lateral Malleolus Fracture of left ankle Presentation: 10/02 08:57 Presenting complaint: Patient states: i was fishing and i walked around the boat and tw2 slipped and fell on my LEFT knee and my left ankle hurts. Transition of care: patient was not received from another setting of care. Onset of symptoms was October 02, 2017. Risk Assessment: Do you want to hurt yourself or someone else? Patient reports no desire to harm self or others. Initial Sepsis Screen: Does the patient meet any 2 criteria? No. Patient's initial sepsis screen is negative. Does the patient have a suspected source of infection? No. Patient's initial sepsis screen is negative. Care prior to arrival: None. 08:57 Method Of Arrival: Wheelchair tw 08:57 Acuity: JASKARAN 4 tw2 Historical: - Allergies: 09: No Known Allergies; tw2 - Home Meds: 09: gabapentin 300 mg oral cap 1 cap 3 times per day [Active]; allopurinol 300 mg Oral tab tw2 1 tab once daily [Active]; Xarelto 20 mg oral tab 1 tab once daily [Active]; sotalol 80 mg Oral tab 1 tab 2 times per day [Active]; montelukast 5 mg oral chew 2 tabs once daily [Active]; metformin 500 mg Oral Tb24 2 tabs 2 times per day [Active]; testosterone cream [Active]; - PMHx: 09: Diabetes - NIDDM; Gout; Hep C (completed treatment); Atrial Fib; tw2 - PSHx: 09: None; tw2 - Immunization history:: Adult Immunizations not up to date. - Social history:: Smoking status: Patient/guardian denies using tobacco, Patient uses alcohol, occasionally. - Ebola Screening: : Patient denies travel to an Ebola-affected area in the 21 days before illness onset. Screenin:41 Abuse screen: Denies threats or abuse. Nutritional screening: No deficits noted. tw2 Tuberculosis screening: No symptoms or risk factors identified. Fall Risk None identified. Assessment: 09:00 General: Appears uncomfortable, Behavior is calm, cooperative, appropriate for age. tw2 Pain: Complains of pain in left foot. Neuro: Level of Consciousness is awake, alert, obeys commands, Oriented to person, place, time, situation. Cardiovascular: Denies chest pain, shortness of breath, Capillary refill < 3 seconds Patient's skin is warm and dry. Respiratory: Airway is patent Respiratory effort is even, unlabored, Respiratory pattern is regular, symmetrical. GI: No signs and/or symptoms were reported involving the gastrointestinal system. : No signs and/or symptoms were reported regarding the genitourinary system. EENT: Derm: No signs and/or symptoms reported regarding the dermatologic system. Musculoskeletal: Swelling present in left foot. 10:22 Reassessment: Patient appears in no apparent distress at this time. No changes from tw2 previously documented assessment. Patient and/or family updated on plan of care and expected duration. Pain level reassessed. Patient is alert, oriented x 3, equal unlabored respirations, skin warm/dry/pink. Vital Signs: 08:58 BP 121 / 100; Pulse 121; Resp 18; Temp 98.8(O); Pulse Ox 96% ; Weight 122.47 kg (R); tw2 Height 6 ft. 1 in. (185.42 cm); Pain 10/10; 09:23 BP 129 / 89; Pulse 111; tw2 10:22 BP 114 / 87; Pulse 122; Resp 18; Pulse Ox 97% on R/A; Pain 8/10; tw2 08:58 Body Mass Index 35.62 (122.47 kg, 185.42 cm) tw2 ED Course: 08:41 Patient arrived in ED. rg4 08:41 Marcello Mcdermott MD is Private Physician. rg4 08:51 [facility] jr8 08:51 David Salinas MD is Attending Physician. jr8 08:57 Pauline Moulton, CHERYL is Primary Nurse. tw2 08:57 Bed in low position. Call light in reach. Pulse ox on. NIBP on. tw2 08:58 Triage completed. tw2 08:58 Arm band placed on. tw2 10:01 X-ray completed. Portable x-ray completed in exam room. Patient tolerated procedure la2 well. 10:02 XRAY Ankle LEFT 3 view In Process Unspecified. EDMS 10:02 XRAY Knee LEFT 3 view In Process Unspecified. EDMS 10:32 Harjit Mancini MD is Referral Physician. jr8 10:41 No provider procedures requiring assistance completed. Patient did not have IV access tw2 during this emergency room visit. Administered Medications: 09:22 Drug: Argonia 10 mg-325 mg 1 tabs Route: PO; tw2 10:40 Follow up: Response: No adverse reaction tw2 09:22 Drug: Ibuprofen 800 mg Route: PO; tw2 10:41 Follow up: Response: No adverse reaction tw2 Outcome: 10:32 Discharge ordered by MD. jr8 10:41 Discharged to home via wheelchair, with crutches, with significant other. tw2 10:41 Condition: stable 10:41 Discharge instructions given to patient, significant other, Instructed on discharge instructions, follow up and referral plans. no drinking with medication, no driving heavy equipment, medication usage, safety practices, crutch walking, splint care Demonstrated understanding of instructions, follow-up care, medications, crutch walking, splint care, Prescriptions given X 2. 10:43 Patient left the ED. tw2 Signatures: Dispatcher [employer] EDMS Ld Blas PA PA jr8 Pauline Moulton RN RN tw2 Whit Hickman4 Fatoumata Maldonado2
== END 2017-10-02 10:43 | disposition home or self-care (01) ==
LOC: ER 08:38
PROC: 2W3RX1Z Immobilization of Left Lower Leg using Splint (ICD-10-PCS; principal; 2017-10-02)
DX: S82.62XA Displaced fracture of lateral malleolus of left fibula, initial encounter for closed fracture (principal); W01.0XXA Fall on same level from slipping, tripping and stumbling without subsequent striking against object, initial encounter; Y93.89 Activity, other specified; Y92.838 Other recreation area as the place of occurrence of the external cause; E11.69 Type 2 diabetes mellitus with other specified complication; Z79.84 Long term (current) use of oral hypoglycemic drugs; B18.2 Chronic viral hepatitis C; I48.91 Unspecified atrial fibrillation; Z79.01 Long term (current) use of anticoagulants
CPT/HCPCS: 99284

== ENCOUNTER 2017-10-07 08:57 | Day surgery (SDC) | payer BC ==
[2017-10-05 14:08] LABS: Absolute Lymphocytes (CBC) 1.5 K/uL (0.7-4.9); Absolute Monocytes 0.7 K/uL (0.1-1.3); Absolute Neutrophil 5.8 K/uL (1.8-8.0); Basophils % 0.9 % (0-1.3); Eosinophils % 2.2 % (0-4.4); Lymphocytes % 18.2 % (15.3-44.8); MCH 30.6 pg (27.0-35.0); MCV 91.9 fL (80-100); MPV 11.4 fL (7.6-11.3); Monocytes % 8.4 % (3.3-12.3); RBC Red Blood Cell Count 4.03 M/uL (4.33-5.43)
[2017-10-05 14:20] LABS: Potassium 4.1 mmol/L (3.5-5.1)
[2017-10-07] MEDS ORDERED: NA CHLORIDE 0.9% 1,000 ML ONE (09:32)
[2017-10-07] MEDS ORDERED: CEFAZOLIN/SWI 1gm 1 GM/10 ML SYR ONE (09:33)
[2017-10-07] MEDS ORDERED: PROPOFOL 200 MG/20 ML VIAL IV ONE (10:32)
[2017-10-07] MEDS ORDERED: MIDAZOLAM HCL 2 MG/2 ML INJ ONE (10:32)
[2017-10-07] MEDS ORDERED: LIDOCAINE 1% MPF 5 ML VIAL ONE (10:32)
[2017-10-07] MEDS ORDERED: FENTANYL CITR 250 MCG/5 ML ONE (10:33)
[2017-10-07] MEDS ORDERED: KETOROLAC 30 MG/ML INJ ONE (11:30)
--- NOTE | 2017-10-07 11:48 | P.BOP ---
Preoperative diagnosis: left lateral malleolus Postoperative diagnosis: same Primary procedure: ORIF lateral malleolus Estimated blood loss: 20 ccs Anesthesia: General Complications: None Transferred to: Recovery Room Condition: Good
[2017-10-07] MEDS: MEPERIDINE HCL 50 MG/ML AMP ONE ×2 (12:01→12:10)
[2017-10-07] MEDS ORDERED: ONDANSETRON 4 MG/2 ML VIAL ONE (12:20)
--- NOTE | 2017-10-07 12:48 | RAD REPORT ---
EXAM DESCRIPTION: RAD - Ankle Left 2 View - 10/07/2017 11:40 am CLINICAL HISTORY: Fibular fracture. FINDINGS: Four fluoroscopic spot images are submitted. They demonstrate plate and screws affixing a fibular fracture in good alignment. The examination was performed by Dr. Ruiz.
[2017-10-07] MEDS ORDERED: HYDROCODONE/APAP 10/325 TAB ONE (12:59)
--- NOTE | 2017-10-07 16:03 | OP ---
Date of Procedure: 10/07/2017 Surgeon: Kong Ruiz MD Preoperative Diagnosis: Left lateral malleolus fracture. Postoperative Diagnosis: Left lateral malleolus fracture. Procedure: Left lateral malleolus open reduction and internal fixation. Estimated Blood Loss: Less than 20 cc. Complications: There were no complications. Specimens: There were no pathology specimens sent. Indications For Operation: Mr. Palomino is a patient who unfortunately fell, injured his left ankle. He arrived to see me in my office where was in a splint. The splint was taken down. He does have pain along the lateral aspect of his ankle. There were no fracture blisters, but he had a significant am ount of swelling. Therefore, he is placed back into a well-padded splint and returned home to elevat e his foot highly. We saw him yesterday to check his skin. The skin did wrinkle only very slightly, but it was felt that should be appropriate for surgery today. On seeing him in the preop holding taty peters, the splint was again taken down, and his swelling has gone down significantly more, therefore, de cision made to proceed. All risks, benefits, and alternatives have been discussed with the patient. He states he understands things as presented and wishes to proceed. Description Of Procedure: The patient was taken to the operating room and placed in supine position. General anesthesia was obtained by staff. Following this well-padded tourniquet was placed on supe rior left thigh. Left lower extremity was then prepped and draped in the usual fashion for the [facility] alfred. A bump was then placed in his left hip. The leg was then elevated, but not exsanguinated. To urniquet was raised. A standard lateral incision was taken down carefully through skin and soft tiss ue with meticulous hemostasis being maintained using Bovie electrocautery. This was followed by furt her dissection down to the fracture site and the fibula. Fracture site was easily encountered. It w as then reduced. It is a fairly short oblique fracture. Decision made not to proceed with a lag scr ew as anatomic reduction was achieved using the clamp and therefore a 6-hole plate is then properly c ontoured and applied. Care was taken to continue to observe the fracture site to ensure there was no displacement. The plate is then applied in standard AO fashion with apparent anatomic reduction bot h on C-arm and visual inspection of the lateral malleolus. The medial clear space has closed down. The wound is then gently irrigated. The skin is closed using a combination of deep Vicryls and more superficial Vicryls followed by ad. The patient was then placed in a well-padded sterile dressi ng, a very well-padded posterior splint with a U and Sam wrap, awakened and taken to recovery room in good condition. There were no complications. ANGIE Voice ID: [id number] Report ID: [id number]
== END 2017-10-07 13:35 | disposition home health service (06) ==
LOC: OR 08:57
PROVIDERS: ATTEND Orthopaedic Surgery
PROC: 0QSK04Z Reposition Left Fibula with Internal Fixation Device, Open Approach (ICD-10-PCS; principal; 2017-10-07 10:30)
DX: S82.62XA Displaced fracture of lateral malleolus of left fibula, initial encounter for closed fracture (principal); E11.9 Type 2 diabetes mellitus without complications; I10 Essential (primary) hypertension; M10.9 Gout, unspecified; G47.33 Obstructive sleep apnea (adult) (pediatric)
CPT/HCPCS: 36415; 80048; 82962; 85025; 97163; J0690; J2175; J2250; J2405; J7030

== ENCOUNTER 2018-01-09 09:43 | Day surgery (SDC) | payer BC ==
[2018-01-09] MEDS ORDERED: NA CHLORIDE 0.9% 500 ML ONE (10:32)
[2018-01-09 10:35] LABS: Protime INR 0.96
[2018-01-09] MEDS: CYCLOPENTOLATE 1% OPTH 2 ML ONE ×3 (10:35→10:45)
[2018-01-09] MEDS: PHENYLEPHRINE 10% OPTH 5ML ONE ×3 (10:35→10:45)
[2018-01-09] MEDS ORDERED: NS 0.9% VIAL 10 ML ONE (11:02)
[2018-01-09] MEDS ORDERED: EPINEPHRINE/PF 1 MG/ML AMP ONE (11:02)
[2018-01-09] MEDS ORDERED: DUOVISC 1 KIT OPTH ONE (11:03)
[2018-01-09] MEDS ORDERED: BALANCED SALT IRRIG PLAIN 500 ML BTL IRR ONE (11:03)
[2018-01-09] MEDS ORDERED: MOXIFLOXACIN HCL 10 DROPS/ML **OR USE OPTH ONE (11:03)
[2018-01-09] MEDS ORDERED: PROPOFOL 200 MG/20 ML VIAL IV ONE (11:19)
[2018-01-09] MEDS: TETRACAINE HCL 0.5% 2ML OPTH ONE ×3 (11:24→11:57)
[2018-01-09] MEDS: BUPIVACAINE 0.25% PF 10 ML VIAL ONE ×2 (11:25→11:40)
[2018-01-09] MEDS: LIDOCAINE 2% MPF 5 ML VIAL ONE ×2 (11:25→11:40)
[2018-01-09] MEDS ORDERED: LIDOCAINE 1% MPF 2 ML AMPULE ONE (11:35)
[2018-01-09] MEDS ORDERED: GLYCOPYRROLATE 0.2 MG/ML SYR ONE (11:47)
--- NOTE | 2018-01-09 12:24 | P.BOP ---
Preoperative diagnosis: Nuclear sclerotic, anterior and posterior subcapsular cataract OS Postoperative diagnosis: Same Primary procedure: Phacoemulsification with IOL OS Estimated blood loss: None Anesthesia: Local (Subtenon's infusion with anesthesia for cataract surgery) Complications: None Implants: ZCB00 +20.5 Transferred to: Other (Day surgery) Condition: Good
--- NOTE | 2018-01-09 23:19 | OP ---
Date of Procedure: 01/09/2018 Surgeon: Vanita Estrada MD Anesthesiologist: Janis Vergara CRNA and Robbin Wilson M.D. Preoperative Diagnosis: Nuclear sclerotic anterior and posterior subcapsular cataract, left eye. Operation Performed: Phacoemulsification with intraocular lens implant, left eye. Anesthesia: Per cataract surgery. Complications: None. Description Of Procedure: In day surgery, the patient was prepped with Betadine and draped. A conju nctival incision was made in the inferior nasal quadrant with Rajinder scissors. A sub-Tenon block c onsisting of a 1:1 mixture of 2% Xylocaine and 0.25% bupivacaine was placed through the conjunctival incision with a blunt cannula. A Honan balloon was placed over the eye and the patient was transferr ed to the operating room. In the operating room the patient was prepped and draped in the usual sterile fashion for ophthalmic surgery. A lid speculum was placed in the left eye. Two paracentesis sites were made superiorly and inferiorly in the limbal cornea. Viscoat was placed in the anterior chamber and a crescent blade wa s used to make a corneal groove and tunnel, and a keratome was used to enter the anterior chamber. P rovisc was placed in the anterior chamber and a 360 degree capsulotomy was performed with a cystitome . The lens was hydrodissected with BSS and rotated freely. The lens was removed with a stop and cho p technique. 10.08 phaco CDE was used to remove the lens. Residual cortex was removed with the irri gation and aspiration. Provisc was placed in the capsular bag. A ZCB00 +20.5 lens was placed in the capsular bag without complications. Irrigation and aspiration were used to remove residual viscoela stic. The paracentesis sites were hydrated with BSS. The wound and paracentesis sites were inspecte d and found to be watertight. Vigamox 0.07 cc was placed intracamerally at the end of the procedure. The eye was irrigated with balanced salt solution. The eye was patched with a soft cotton patch an d Hummel metal shield. The patient was returned to day surgery in good condition. Discharge Instructions: Mr. Palomino is discharged to home in good condition and is to follow up with Dr Too Estrada. HERNAN/MARCIN Voice ID: [id number] Report ID: [id number]
== END 2018-01-09 12:54 | disposition home or self-care (01) ==
LOC: OR 09:43
PROVIDERS: ATTEND Ophthalmology Retina Specialist
PROC: 08RK3JZ Replacement of Left Lens with Synthetic Substitute, Percutaneous Approach (ICD-10-PCS; principal; 2018-01-09 10:45)
DX: H25.12 Age-related nuclear cataract, left eye (principal); H25.032 Anterior subcapsular polar age-related cataract, left eye; H25.042 Posterior subcapsular polar age-related cataract, left eye; E11.9 Type 2 diabetes mellitus without complications; I48.91 Unspecified atrial fibrillation; G47.30 Sleep apnea, unspecified; Z79.01 Long term (current) use of anticoagulants; Z83.3 Family history of diabetes mellitus
CPT/HCPCS: 36415; 82962; 85610; 85730; J0171; J2001; J2704

== ENCOUNTER 2021-01-18 21:07 | Inpatient (IN) | payer OTHER ==
--- OUTSIDE RECORDS SUMMARY | 2021-01-18 21:11 | XMS REPORT | Continuity of Care Document ---
:1955 Author Organization [facility] t Address [address] [place] [address] Care Team Providers Name Role Phone Unavailable Unavailable Unavailable Problems This patient has no known problems. Allergies, Adverse Reactions, Alerts This patient has no known allergies or adverse reactions. Medications This patient has no known medications. Procedures This patient has no known procedures. Encounters Start End Encounter Admission Attending Care Care Encounter Source Date/Time Date/Time Type Type Clinicians Facility Department ID 2020-12-15 2020-12-15 Outpatient [facility] [id number] [facility] [place] 00:00:00 [facility]00[facility]00 [facility] 2020-09-18 2020-09-18 Outpatient [facility] [id number] [facility] 2020-09-15 2020-09-15 Outpatient [facility] [id number] [facility] 2020-09-15 2020-09-15 Outpatient [facility] [id number] [facility] [place] 00[facility]00[facility]00 [facility] 2020-09-09 2020-09-09 Outpatient [facility] [id number] [facility] 2020-06-19 2020-06-19 [facility] [id number] [facility] 2020-06-12 2020-06-12 [facility] [id number] [facility] 2020-06-10 2020-06-10 [facility] [id number] [facility] 2020-06-10 2020-06-10 [facility] [id number] [facility] 2020-05-21 2020-05-21 [facility] [id number] [facility] 2020-05-06 2020-05-06 [facility] [id number] [facility] 2020-04-30 2020-04-30 [facility] [id number] [facility] Results This patient has no known results.
[2021-01-19 00:28] LABS: Urine Blood Negative (Negative); Urine Glucose Negative (Negative); Urine Protein 1+ (Negative); Urine Specific Gravity 1.025 (1.005-1.030)
[2021-01-19 00:32] LABS: SARS-COV-2 RT PCR NEGATIVE (NEGATIVE)
[2021-01-19 00:43] LABS: Absolute Lymphocytes (CBC) 1.1 K/uL (0.7-4.9); Basophils % 0.4 % (0-1.3); Hematocrit 37.8 % (39.6-49.0); Lymphocytes % 6.9 % (15.3-44.8); MPV 10.6 fL (7.6-11.3); RBC Red Blood Cell Count 4.01 M/uL (4.33-5.43)
[2021-01-19 00:55] LABS: Albumin 3.9 g/dL (3.4-5.0); Bilirubin Direct 0.1 mg/dL (0-0.2); Bilirubin Total 0.5 mg/dL (0.2-1.0); Protein, Total 8.1 g/dL (6.4-8.2)
[2021-01-19] MEDS ORDERED: PIPERACIL/TAZO 3.375 GM VIAL IV ONE ×3 (01:03→15:23)
[2021-01-19] MEDS ORDERED: NA CHLORIDE 0.9% 100 ML ONE ×4 (01:04→15:22)
--- NOTE | 2021-01-19 01:34 | P.HP ---
Certification for Inpatient Patient admitted to: Inpatient With expected LOS: >2 Midnights Patient will require the following post-hospital care: None Practitioner: I am a practitioner with admitting privileges, knowledge of patient current condition, hospital course, and medical plan of care. Services: Services provided to patient in accordance with Admission requirements found in Title 42 Section 412.3 of the Code of Federal Regulations Patient History Date of Service: 01/19/21 Primary Care Provider: Dr. Deng Reason for admission: Pneumonia History of Present Illness: 65-year-old male with history of atrial fibrillation on chronic anticoagulation therapy, diabetes mellitus type 2, gout presents emergency room for chills, malaise. Patient noted to have low-grade fever as well. Labs were significant for white blood cell count 16.5 hemoglobin 12.5 hematocrit 37.8 GFR 64 glucose 126 Covid test negative chest x-ray appears to demonstrate multifocal pneumonia. Patient was started on Zosyn given that he takes sotalol at home, ED provider wishes to admit for further evaluation and management. Allergies No Known Allergies Allergy (Verified 12/10/19 16:39) Home Medications: Gabapentin [Gralise] 600 mg PO BID 08/21/17 Montelukast [Singulair*] 10 mg PO DAILY 08/21/17 Aspirin [Aspirin EC 81 MG] 81 mg PO DAILY 12/10/19 Meloxicam [Mobic] 15 mg PO DAILY 12/10/19 Metformin HCl 1,000 mg PO BID 12/10/19 Sotalol HCl [Betapace*] 160 mg PO BID 6AM 6PM 12/10/19 - Past Medical/Surgical History Diabetic: Yes -: Gout -: Type 2 Dm -: Neuropathy -: HTN -: Atrial fibrillation on chronic anticoagulation -: Sleep apnea -: Osteoarthritis -: Left ankle fx repair Psychosocial/ Personal History: Patient lives at home with family - Family History Mother -: Diabetes - Social History Smoking Status: Never smoker Alcohol use: Yes CD- Drugs: No Caffeine use: No Place of Residence: Home Review of Systems 10-point ROS is otherwise unremarkable General: Fever, Chills, Weakness, Malaise Physical Examination - Physical Exam General: Alert, In no apparent distress, Oriented x3 HEENT: Atraumatic, PERRLA, Mucous membr. moist/pink, EOMI, Sclerae nonicteric Neck: Supple, 2+ carotid pulse no bruit, No LAD, Without JVD or thyroid a bnormality Respiratory: Diminished, Crackles/rales Cardiovascular: Regular rate/rhythm, Irregular heart rate/rhythm (A. fib, rate controlled) Capillary refill: <2 Seconds Gastrointestinal: Normal bowel sounds, No tenderness Musculoskeletal: No tenderness Integumentary: No rashes Neurological: Normal speech, Normal strength at 5/5 x4 extr, Normal tone, Normal affect Lymphatics: No axilla or inguinal lymphadenopathy - Studies Laboratory Data (last 24 hrs) 01/19/21 00:26: Sodium 138, Potassium 4.0, BUN 18, Creatinine 1.14, Glucose 126 H, Total Bilirubin 0.5, AST 20, ALT 35, Alkaline Phosphatase 55 01/19/21 00:26: WBC 16.50 H, Hgb 12.5 L, Hct 37.8 L, Plt Count 194 Assessment and Plan - Plan Assessment: Fever, leukocytosis secondary to pneumonia Atrial fibrillation on chronic anticoagulation therapy Diabetes mellitus type 2 Gout Plan: Fever, leukocytosis secondary to pneumonia: Blood cultures obtained in the emergency department, continue with IV antibioticsZosyn given patient is on sotalol for A. fib. Continue with incentive spirometry. Atrial fibrillation on chronic anticoagulation therapy: I have continued Xarelto and sotalol monitor on telemetry Diabetes mellitus type 2: A [facility] Accu-Chek, sliding scale insulin Gout: I have continued allopurinol DVT PPX: Continue Xarelto Code status: Full code Discharge Plan: Home Plan to discharge in: 48 Hours - Advance Directives Does patient have a Living Will: No Does patient have a Durable POA for Healthcare: No - Code Status/Comfort Care Code Status Assessed: Yes (Full code) Critical Care: No Time Spent Managing Pts Care (In Minutes): 55
--- NOTE | 2021-01-19 01:43 | ER ---
Nurse's Notes [facility] Name: Rush Palomino Age: 65 yrs Sex: Male : 1955 Arrival Date: 01/18/2021 Time: 21:11 Bed 23 Private MD: Diagnosis: Pneumonia, Multifocal Presentation: 01/18 22:38 Chief complaint: Patient states: headache, body aches, fever began this afternoon, vg1 temperature was 104.7 temporal. c/o SUSAN feet pain and congestion, denies cough, but states diarrhea but believes its from medication. Coronavirus screen: Vaccine status: Patient reports receiving the 2nd dose of the covid vaccine. Client denies travel out of the [place] in the last 14 days. Ebola Screen: Patient negative for fever greater than or equal to 101.5 degrees Fahrenheit, and additional compatible Ebola Virus Disease symptoms. Initial Sepsis Screen: Does the patient meet any 2 criteria? No. Patient's initial sepsis screen is negative. Does the patient have a suspected source of infection? No. Patient's initial sepsis screen is negative. Risk Assessment: Do you want to hurt yourself or someone else? Patient reports no desire to harm self or others. Onset of symptoms was January 18, 2021. 22:38 Method Of Arrival: Wheelchair vg1 22:38 Acuity: JASKARAN 3 vg1 Triage Assessment: 22:42 General: Appears in no apparent distress. uncomfortable, Behavior is calm, cooperative. vg1 Pain: Complains of pain in head, right and left foot Pain currently is 4 out of 10 on a pain scale. Historical: - Allergies: 22:42 No Known Allergies; vg1 - Home Meds: 22:42 Xarelto 20 mg Oral tab 1 tab once daily [Active]; sotalol 80 mg Oral tab 1 tab 2 times vg1 per day [Active]; montelukast 5 mg Oral chew 2 tabs once daily [Active]; metformin 500 mg Oral Tb24 2 tabs 2 times per day [Active]; gabapentin 300 mg Oral cap 1 cap 3 times per day [Active]; allopurinol 300 mg Oral tab 1 tab once daily [Active]; - PMHx: 22:42 Atrial Fib; Diabetes - NIDDM; Gout; Hep C (completed treatment); vg1 - PSHx: 22:42 None; vg1 - Immunization history:: Client reports receiving the 2nd dose of the Covid vaccine. - Social history:: Smoking status: Patient denies any tobacco usage or history of. Screenin/22 00:07 Abuse screen: Denies threats or abuse. Denies injuries from another. Nutritional tw5 screening: No deficits noted. Tuberculosis screening: No symptoms or risk factors identified. Fall Risk None identified. Assessment: 00:07 General: Reports "I was feeling fine but then when I got home earlier today I started tw5 not feeling well. Body aches and chills" states that they took his temp and it was reported to be 103 with an oral thermomemter. Pain: Complains of pain in " just got a little bit of a headache." Pain currently is 4 out of 10 on a pain scale. Cardiovascular: Rhythm is atrial fibrillation. Respiratory: Airway is patent Trachea midline Respiratory effort is even, unlabored, Breath sounds are clear bilaterally. 01:08 Reassessment: Patient appears in no apparent distress at this time. No changes from tw5 previously documented assessment. Patient and/or family updated on plan of care and expected duration. Pain level reassessed. General: Appears in no apparent distress. Behavior is calm, cooperative, appropriate for age. Vital Signs: 01/18 22:38 BP 132 / 86; Pulse 64; Resp 22; Temp 99.7(O); Pulse Ox 98% ; Weight 120.2 kg; Height 6 vg1 ft. 1 in. (185.42 cm); Pain 4/10; 01/19 00:07 BP 120 / 87; Pulse 66; Resp 18; Temp 99.3; Pulse Ox 98% ; tw5 01:08 BP 140 / 77; Pulse 69; Resp 14; Pulse Ox 99% on R/A; tw5 01:48 BP 142 / 76; Pulse 71; Resp 18; Pulse Ox 96% on R/A; df1 02:30 BP 124 / 68; Pulse 71; Resp 22; Pulse Ox 99% on R/A; tw5 01/18 22:38 Body Mass Index 34.96 (120.20 kg, 185.42 cm) vg1 ED Course: 01/18 21:11 Patient arrived in ED. wm 22:42 Triage completed. vg1 22:42 Arm band placed on. vg1 22:45 COVID swab sent to lab. Flu and/or RSV swab sent to lab. vg1 23:55 Clare Page is Primary Nurse. df1 23:58 Gerald Stoddard MD is Attending Physician. 7 01/19 00:07 Primary Nurse role handed off by Clare Page tw5 00:07 Davida Ornelas is Primary Nurse. tw5 00:07 Patient has correct armband on for positive identification. Placed in gown. Bed in low tw5 position. Call light in reach. Side rails up X 1. Adult w/ patient. quality assurance monitor final on. Pulse ox on. NIBP on. Door closed. Noise minimized. Lights dimmed. Moved to private room. Warm blanket given. Verbal reassurance given. 00:07 Inserted saline lock: 18 gauge in left antecubital area, using aseptic technique. Blood tw5 collected. 00:12 No apparent distress. Awaiting lab results. tw5 00:12 Initial lab(s) drawn, by ED staff, sent to lab. First set of blood cultures drawn by ED tw5 staff, EKG done, by ED staff, reviewed by Gerald Stoddard MD. 00:12 LFT's Sent. tw5 00:12 Basic Metabolic Panel Sent. tw5 00:12 COVID-19/FLU A+B (Document "Date of Onset" if Symptomatic) Sent. tw5 00:12 CBC with Diff Sent. tw5 00:14 Lactate Sent. tw5 00:25 Chest Single View XRAY In Process Unspecified. EDMS 00:36 Lactate Sent. tw5 00:37 LFT's Sent. tw5 00:37 Basic Metabolic Panel Sent. tw5 00:37 CBC with Diff Sent. tw5 00:59 Blood Culture Adult (2) Sent. tw5 00:59 Blood Culture Sent. tw5 01:16 Blood Culture Sent. tw5 01:41 Octavio Watkins is Hospitalizing Provider. 7 02:30 Report given to Devyn LUNA. Patient moved. tw5 Administered Medications: 01:00 CANCELLED (wrong medicationn): Rocephin (cefTRIAXone) 1 grams IV at per protocol once; mh7 Given slow IV push per pharmacy instructions 01:00 CANCELLED (wrong medicationn): AZITHromycin 500 mg IVPB once over 1 hrs; (mix in 250 mL 7 NS) 01:14 Drug: Zosyn (piperacillin-tazobactam) 3.375 grams Route: IVPB; Infused Over: 60 mins; tw5 Site: left antecubital; 02:30 Follow up: Response: No adverse reaction; IV Status: Completed infusion tw5 Outcome: 01:42 Decision to Hospitalize by Provider. [facility] 15:43 Patient left the ED. iw Signatures: Dispatcher [employer] EDSamara Locke RN RN iw Garcia, Victoria, RN RN 1 Gerald Stoddard MD MD [facility] Jayleen Hayes Dawn df1 Davida Ornelas 5
--- NOTE | 2021-01-19 01:43 | EDPHYS ---
Physician Documentation [facility] Name: Rush Palomino Age: 65 yrs Sex: Male : 1955 Arrival Date: 01/18/2021 Time: 21:11 Bed 23 Private MD: ED Physician Gerald tSoddard HPI: 01/19 00:11 This 65 yrs old Male presents to ER via Wheelchair with complaints of Fever, Body mh7 aches, Neuropathy, pain in bilateral feet. 00:11 The patient reports fever, that was measured at 104.7 degrees Fahrenheit, Temporal mh7 measurement, not verified. Onset: The symptoms/episode began/occurred yesterday. Modifying factors: there are no obvious modifying factors. Associated signs and symptoms: Pertinent positives: chills, myalgias, runny nose, sinus congestion, Pertinent negatives: abdominal pain, altered mental status, arthralgias, backache, chest pain, cough, diarrhea, pulling at ears, earache, headache, hemoptysis, nausea, night sweats, sinus drainage, skin rash, shortness of breath, sore throat, swelling, vomiting. Severity of symptoms: At their worst the symptoms were mild yesterday, in the emergency department the symptoms have improved moderately. Historical: - Allergies: 01/18 22:42 No Known Allergies; vg1 - Home Meds: 22:42 Xarelto 20 mg Oral tab 1 tab once daily [Active]; sotalol 80 mg Oral tab 1 tab 2 times vg1 per day [Active]; montelukast 5 mg Oral chew 2 tabs once daily [Active]; metformin 500 mg Oral Tb24 2 tabs 2 times per day [Active]; gabapentin 300 mg Oral cap 1 cap 3 times per day [Active]; allopurinol 300 mg Oral tab 1 tab once daily [Active]; - PMHx: 22:42 Atrial Fib; Diabetes - NIDDM; Gout; Hep C (completed treatment); vg1 - PSHx: 22:42 None; vg1 - Immunization history:: Client reports receiving the 2nd dose of the Covid vaccine. - Social history:: Smoking status: Patient denies any tobacco usage or history of. ROS: 01/19 00:11 Eyes: Negative for injury, pain, redness, and discharge, ENT: Negative for injury, mh7 pain, and discharge, Neck: Negative for injury, pain, and swelling, Cardiovascular: Negative for chest pain, palpitations, and edema, Respiratory: Negative for shortness of breath, cough, wheezing, and pleuritic chest pain, Abdomen/GI: Negative for abdominal pain, nausea, vomiting, diarrhea, and constipation, Back: Negative for injury and pain, : Negative for injury, bleeding, discharge, and swelling, MS/Extremity: Negative for injury and deformity, Skin: Negative for injury, rash, and discoloration, Neuro: Negative for headache, weakness, numbness, tingling, and seizure, Psych: Negative for depression, anxiety, suicide ideation, homicidal ideation, and hallucinations, Allergy/Immunology: Negative for hives, rash, and allergies, Endocrine: Negative for neck swelling, polydipsia, polyuria, polyphagia, and marked weight changes, Hematologic/Lymphatic: Negative for swollen nodes, abnormal bleeding, and unusual bruising. Exam: 00:11 Constitutional: This is a well developed, well nourished patient who is awake, alert, mh7 and in no acute distress. Head/Face: Normocephalic, atraumatic. Eyes: Pupils equal round and reactive to light, extra-ocular motions intact. Lids and lashes normal. Conjunctiva and sclera are non-icteric and not injected. Cornea within normal limits. Periorbital areas with no swelling, redness, or edema. ENT: Nares patent. No nasal discharge, no septal abnormalities noted. Tympanic membranes are normal and external auditory canals are clear. Oropharynx with no redness, swelling, or masses, exudates, or evidence of obstruction, uvula midline. Mucous membranes moist. Neck: Trachea midline, no thyromegaly or masses palpated, and no cervical lymphadenopathy. Supple, full range of motion without nuchal rigidity, or vertebral point tenderness. No Meningismus. Chest/axilla: Normal chest wall appearance and motion. Nontender with no deformity. No lesions are appreciated. Cardiovascular: Regular rate and rhythm with a normal S1 and S2. No gallops, murmurs, or rubs. Normal PMI, no JVD. No pulse deficits. Respiratory: Lungs have equal breath sounds bilaterally, clear to auscultation and percussion. No rales, rhonchi or wheezes noted. No increased work of breathing, no retractions or nasal flaring. Abdomen/GI: Soft, non-tender, with normal bowel sounds. No distension or tympany. No guarding or rebound. No evidence of tenderness throughout. Back: No spinal tenderness. No costovertebral tenderness. Full range of motion. Skin: Warm, dry with normal turgor. Normal color with no rashes, no lesions, and no evidence of cellulitis. MS/ Extremity: Pulses equal, no cyanosis. Neurovascular intact. Full, normal range of motion. Neuro: Awake and alert, GCS 15, oriented to person, place, time, and situation. Cranial nerves II-XII grossly intact. Motor strength 5/5 in all extremities. Sensory grossly intact. Cerebellar exam normal. Normal gait. Psych: Awake, alert, with orientation to person, place and time. Behavior, mood, and affect are within normal limits. Vital Signs: 01/18 22:38 BP 132 / 86; Pulse 64; Resp 22; Temp 99.7(O); Pulse Ox 98% ; Weight 120.2 kg; Height 6 vg1 ft. 1 in. (185.42 cm); Pain 4/10; 01/19 00:07 BP 120 / 87; Pulse 66; Resp 18; Temp 99.3; Pulse Ox 98% ; tw5 01:08 BP 140 / 77; Pulse 69; Resp 14; Pulse Ox 99% on R/A; tw5 01:48 BP 142 / 76; Pulse 71; Resp 18; Pulse Ox 96% on R/A; df1 02:30 BP 124 / 68; Pulse 71; Resp 22; Pulse Ox 99% on R/A; tw5 01/18 22:38 Body Mass Index 34.96 (120.20 kg, 185.42 cm) 1 MDM: 01:34 Differential diagnosis: viral Infection, bacterial infection, URI, bronchitis, mh7 pneumonia. Data reviewed: vital signs, nurses notes, old medical records, lab test result(s), CBC, electrolytes, EKG, radiologic studies, plain films. Data interpreted: Pulse oximetry: on room air is 98 %. Interpretation: normal. 01:41 Counseling: I had a detailed discussion with the patient and/or guardian regarding: the 7 historical points, exam findings, and any diagnostic results supporting the discharge/admit diagnosis, the presence of at least one elevated blood pressure reading (>120/80) during this emergency department visit, lab results, radiology results, the need for further work-up and treatment in the hospital. Response to treatment: the patient's symptoms have mildly improved after treatment. 01:42 Patient medically screened. [facility] 01/18 22:45 Order name: COVID-19/FLU A+B (Document "Date of Onset" if Symptomatic); Complete Time: vg1 00:50 01/19 00:10 Order name: CBC with Diff; Complete Time: 00:50 [facility] 01/19 00:10 Order name: Basic Metabolic Panel; Complete Time: 00:55 [facility] 01/19 00:10 Order name: LFT's; Complete Time: 00:55 [facility] 01/19 00:13 Order name: Lactate; Complete Time: 00:55 [facility] 01/19 00:28 Order name: Urine Dipstick-Ancillary; Complete Time: 00:50 [facility] 01/19 00:10 Order name: Urine Dipstick-Ancillary (obtain specimen); Complete Time: 00:37 [facility] 01/19 00:10 Order name: Chest Single View XRAY [facility] 01/19 00:53 Order name: Blood Culture Adult (2) [facility] 01/19 00:53 Order name: Blood Culture [facility] 01/19 11:30 Order name: Glucose, Ancillary Testing [facility] 01/19 00:10 Order name: Saline Lock; Complete Time: 00:12 [facility] Administered Medications: 01:00 CANCELLED (wrong medicationn): Rocephin (cefTRIAXone) 1 grams IV at per protocol once; [facility] Given slow IV push per pharmacy instructions 01:00 CANCELLED (wrong medicationn): AZITHromycin 500 mg IVPB once over 1 hrs; (mix in 250 mL [facility] NS) 01:14 Drug: Zosyn (piperacillin-tazobactam) 3.375 grams Route: IVPB; Infused Over: 60 mins; tw5 Site: left antecubital; 02:30 Follow up: Response: No adverse reaction; IV Status: Completed infusion tw5 Disposition Summary: 01/19/21 01:42 Hospitalization Ordered Hospitalization Status: Inpatient Admission [facility] Provider: Octavio Watkins Flory Condition: Stable [facility] Problem: new [facility] Symptoms: have improved [facility] Bed/Room Type: Standard [facility] Location: Telemetry/MedSurg (Inpatient)(01/19/21 13:40) bd Room Assignment: 208(01/19/21 13:40) bd Diagnosis - Pneumonia, Multifocal [facility] Forms: - Medication Reconciliation Form [facility] - SBAR form [facility] Signatures: Dispatcher [employer] EDMS Monroy ScarletLyla Rubi RN RN silviano Hickman, Sharifa RN RN vg1 Gerald Stoddard MD MD 7 Davida Ornelas 5 Corrections: (The following items were deleted from the chart) 01:00 00:53 Rocephin (cefTRIAXone) 1 grams IV at per protocol once; Given slow IV push per [facility] pharmacy instructions ordered. [facility] 01:00 00:53 AZITHromycin 500 mg IVPB once over 1 hrs; (mix in 250 mL NS) ordered. [place] [id number] 02:46 01:42 Telemetry/MedSurg (Inpatient) [facility] 02:46 01:42 [facility] 13:40 02:46 [facility] ER HOLD [facility] 13:40 02:46 ERHOLD- [facility]
[2021-01-19 06:25] VITALS: BMI 35.9
[2021-01-19] MEDS ORDERED: PNEUMOCOCCAL VACCINE 0.5 ML IMVAC ONE (08:00)
--- NOTE | 2021-01-19 08:39 | RAD REPORT ---
EXAM DESCRIPTION: RAD - Chest Single View - 01/19/2021 12:26 am CLINICAL HISTORY: FEVER Chest pain. COMPARISON: Chest Single View dated 08/21/2017; CHEST PA AND LAT 2 VIEW dated 10/15/2010 FINDINGS: Portable technique limits examination quality. Mild to moderate bilateral pulmonary opacities are present likely representing infection. The heart i s upper limit of normal in size. No displaced fractures.
[2021-01-19] MEDS: NA CHLORIDE 0.9% 1,000 ML IV SCH ×3 (09:37→22:24)
[2021-01-19] MEDS: SOTALOL HCL 80 MG TAB PO SCH ×2 (09:37→17:01)
[2021-01-19] MEDS ORDERED: ONDANSETRON 4 MG/2 ML VIAL IV PRN (09:37)
[2021-01-19] MEDS: ACETAMINOPHEN 500 MG TAB PO PRN (09:37)
[2021-01-19] MEDS: PIPER TAZO 3.375 GM in NA CHLORIDE 0.9% 100 ML IV SCH ×2 (09:37→17:01)
[2021-01-19] MEDS: allopurinoL 300 MG TAB PO SCH (09:37)
[2021-01-19] MEDS: INSULIN -REGULAR HUMAN 50 UNIT/0.5 ML ML SQ SCH ×4 (09:37→21:00)
[2021-01-19] MEDS ORDERED: ACETAMINOPHEN 500 MG TAB PO PRN (09:39)
[2021-01-19] MEDS ORDERED: ACETAMINOPHEN 500 MG TAB ONE (10:17)
[2021-01-19] MEDS ORDERED: NA CHLORIDE 0.9% 1,000 ML ONE (11:09)
[2021-01-19] MEDS ORDERED: SOTALOL HCL 80 MG TAB ONE (11:09)
[2021-01-19 15:33] VITALS: O2SAT 98
[2021-01-19] MEDS ORDERED: RIVAROXABAN 20 MG TABLET PO SCH (17:00)
[2021-01-19] MEDS ORDERED: GABAPENTIN 300 MG PO SCH (17:11)
[2021-01-19] MEDS: GABAPENTIN 300 MG CAP PO SCH (17:30)
--- NOTE | 2021-01-19 19:00 | P.PN ---
Date of Service: 01/19/21 Patient seen and examined. He states he feels much better. No fever today. Diagnosis: Pneumonia COVID-19 negative. Chronic gout. Chronic neuropathy. Plan: Continue current antibioticss. Resume home medications. Patient is stable on room air. Has no other organ dysfunction. May discharge home once he defervesces.
[2021-01-20] MEDS: PIPER TAZO 3.375 GM in NA CHLORIDE 0.9% 100 ML IV SCH ×2 (01:12→09:00)
[2021-01-20] MEDS: ACETAMINOPHEN 500 MG TAB PO PRN (03:15)
[2021-01-20 06:30] LABS: Absolute Lymphocytes (CBC) 1.5 K/uL (0.7-4.9); Basophils % 0.6 % (0-1.3); Hematocrit 40.2 % (39.6-49.0); Lymphocytes % 18.7 % (15.3-44.8); MPV 10.7 fL (7.6-11.3)
[2021-01-20 06:51] LABS: Albumin 3.2 g/dL (3.4-5.0); Bilirubin Total 0.4 mg/dL (0.2-1.0); Potassium 3.6 mmol/L (3.5-5.1); Protein, Total 7.3 g/dL (6.4-8.2); Thyroid Stimulating Hormone 2.23 uIU/mL (0.360-3.740)
[2021-01-20] MEDS: SOTALOL HCL 80 MG TAB PO SCH (07:14)
[2021-01-20] MEDS: INSULIN -REGULAR HUMAN 50 UNIT/0.5 ML ML SQ SCH (07:30)
--- NOTE | 2021-01-20 08:19 | P.DS ---
Admission Date: 01/19/21 Discharge Date: 01/20/21 Primary Care Provider: Dr. Deng Disposition: ROUTINE DISCHARGE Discharge Condition: GOOD Reason for Admission: Pneumonia Procedures: CXR (01/19): Mild to moderate bilateral pulmonary opacities are present likely representing infection. The heart is upper limit of normal in size. No displaced fractures. Problem List Fever, leukocytosis secondary to pneumonia Atrial fibrillation on chronic anticoagulation therapy Diabetes mellitus type 2, uwj-mvltfty-wuvdeobil Gout Brief History of Present Illness: 65-year-old male with history of atrial fibrillation on chronic anticoagulation therapy, diabetes mellitus type 2, gout presents emergency room for chills, malaise. Patient noted to have low-grade fever as well. Labs were significant for white blood cell count 16.5 hemoglobin 12.5 hematocrit 37.8 GFR 64 glucose 126 Covid test negative chest x-ray appears to demonstrate multifocal pneumonia. Patient was started on Zosyn given that he takes sotalol at home, ED provider wishes to admit for further evaluation and management. Hospital Course: Patient was empirically covered with IV Zosyn. He had resolution of his leukocytosis, remained afebrile, did not require oxygen supplementation, and was feeling much better the following morning. Patient was discharged home to complete a 7-day course of Augmentin and doxycycline. Avoiding medications that can prolong his QT/affect his well controlled atrial fibrillation. Follow-up with PCP in 3-5 days. Vital Signs/Physical Exam: Temp Pulse Resp BP Pulse Ox 97 F 64 18 122/70 96 01/20/21 04:00 01/20/21 04:00 01/20/21 04:00 01/20/21 04:00 01/20/21 04:00 General: Alert, In no apparent distress HEENT: Mucous membr. moist/pink, Sclerae nonicteric Respiratory: Clear to auscultation bilaterally Cardiovascular: No edema, No murmurs, Irregular heart rate/rhythm Gastrointestinal: Soft and benign, Non-distended, No tenderness Musculoskeletal: No erythema, No tenderness Integumentary: No rashes, No significant lesion Neurological: Normal speech, Normal affect Laboratory Data at Discharge: WBC 8.30 K/uL (4.3-10.9) D 01/20/21 06:00 Hgb 13.0 g/dL (13.6-17.9) L 01/20/21 06:00 Hct 40.2 % (39.6-49.0) 01/20/21 06:00 Plt Count 185 K/uL (152-406) 01/20/21 06:00 Sodium 142 mmol/L (136-145) 01/20/21 06:00 Potassium 3.6 mmol/L (3.5-5.1) 01/20/21 06:00 BUN 15 mg/dL (7-18) 01/20/21 06:00 Creatinine 1.17 mg/dL (0.55-1.3) 01/20/21 06:00 Glucose 183 mg/dL (74-106) H 01/20/21 06:00 Total Bilirubin 0.4 mg/dL (0.2-1.0) 01/20/21 06:00 AST 17 U/L (15-37) 01/20/21 06:00 ALT 26 U/L (12-78) 01/20/21 06:00 Alkaline Phosphatase 52 U/L (45-117) 01/20/21 06:00 Triglycerides 101 mg/dL (<150) 01/20/21 06:00 Cholesterol 181 mg/dL (<200) 01/20/21 06:00 HDL Cholesterol 64 mg/dL (40-60) H 01/20/21 06:00 Cholesterol/HDL Ratio 2.83 01/20/21 06:00 Home Medications: Gabapentin [Gralise] 600 mg PO BID 08/21/17 Montelukast [Singulair*] 10 mg PO DAILY 08/21/17 Aspirin [Aspirin EC 81 MG] 81 mg PO DAILY 12/10/19 Sotalol HCl [Betapace*] 1 tab PO BID 6AM 6PM 12/10/19 Allopurinol 1 tab PO DAILY 01/19/21 Aspirin [Aspirin EC 81 MG] 81 mg PO DAILY 01/19/21 Lisinopril [Zestril] 5 mg PO DAILY 01/19/21 Metformin HCl [Metformin HCl ER] 750 mg PO BID 01/19/21 glipiZIDE [Glipizide] 5 mg PO BID 01/19/21 Amox/Clavulanate [Augmentin 875-125 Tab] 875 mg PO BID 7 Days #14 tab 01/20/21 Doxycycline Monohydrate 100 mg PO BID 7 Days #14 capsule 01/20/21 New Medications: Amox/Clavulanate [Augmentin 875-125 Tab] 875 mg PO BID 7 Days #14 tab Doxycycline Monohydrate 100 mg PO BID 7 Days #14 capsule Physician Discharge Instructions: You were found to have pneumonia. You remained afebrile and had resolution of your high white blood cell count with antibiotics. You are deemed stable for discharge home with 1 week of 2 antibiotics. (Augmentin & Doxycycline). Follow up with your PCP within 1 week. Diet: ADA Activity: Ad amrik Followup: NONE,NONE [Primary Care Provider] - Time spent managing pt's care (in minutes): 40
[2021-01-20 08:30] VITALS: BP 123/78; TEMP 97.2
[2021-01-20] MEDS ORDERED: ASPIRIN EC 81 MG TAB PO SCH (09:00)
[2021-01-20] MEDS ORDERED: MONTELUKAST 10 MG TAB PO SCH (09:00)
[2021-01-20] MEDS: allopurinoL 300 MG TAB PO SCH (09:10)
[2021-01-20] MEDS: GABAPENTIN 300 MG CAP PO SCH (09:10)
--- NOTE | 2021-01-21 08:07 | EKG ---
Test Date: 2021-01-19 Test Time: 18:40:35 Cell Tuber Hand: PCMP MEASUREMENT RESULTS: Intervals: Rate: 70 [place]: QRSD: 150 QT: 460 QTc: 496 [place]: P: WI: QRS: -29 T: -19 INTERPRETIVE STATEMENTS: Atrial fibrillation Right bundle branch block Voltage criteria for left ventricular hypertrophy Abnormal ECG Compared to ECG 01/19/2021 00:03:22 Sinus rhythm no longer present Left-axis deviation no longer present Electronically Signed On 01-21-21 08:03:38 DIGITAL STRATEGY DIRECTOR by Chirag Mayorga
--- NOTE | 2021-01-21 08:10 | EKG ---
Test Date: 2021-01-19 Test Time: 00:03:22 [employer] I Assembler: TW MEASUREMENT RESULTS: Intervals: Rate: 67 MN: 196 QRSD: 150 QT: 450 QTc: 475 [place]: P: 4 MN: 196 QRS: -41 T: 15 INTERPRETIVE STATEMENTS: Normal sinus rhythm Left axis deviation Right bundle branch block Moderate voltage criteria for LVH, may be normal variant Abnormal ECG Compared to ECG 08/23/2017 07:46:41 Left-axis deviation now present Sinus bradycardia no longer present First degree AV block no longer present Electronically Signed On 01-21-21 08:04:02 CORRECTIONS SERGEANT by Chirag Mayorga
== END 2021-01-20 09:21 | disposition home or self-care (01) | DRG 195 ==
LOC: ER 21:07 → ERHOLD 01-19 02:11 → 2ND 01-19 14:44
PROVIDERS: ADMIT Internal Medicine; ATTEND Internal Medicine
DX: J18.9 Pneumonia, unspecified organism (principal); I48.91 Unspecified atrial fibrillation; E11.40 Type 2 diabetes mellitus with diabetic neuropathy, unspecified; M10.9 Gout, unspecified; Z79.01 Long term (current) use of anticoagulants; Z20.822 Contact with and (suspected) exposure to COVID-19
CPT/HCPCS: 0240U; 36415; 71045; 80048; 80053; 80061; 80076; 81003; 82947; 83605; 84439; 84443; 85025; 87040; 93005; 94010; J2543; J7030

== ENCOUNTER 2023-08-27 09:08 | Emergency (ER) | payer OTHER, MEDICARE ==
--- OUTSIDE RECORDS SUMMARY | 2023-08-27 09:13 | XMS REPORT | Continuity of Care Document ---
Author Name Unknown Address [address] [facility] [address] [place] [address] [facility] Address [address] [facility] [address] [place] [address] Care Team Providers Care Marketing Communications Leader Name Role Phone Yoni Deng Attending Clinician Unavailable Payers Payer Name Policy Type Policy Number Effective Date Expirati on Date Source [place] [id number] 2018 00:00:00 [facility] MEDICARE NOVITAS [id number] 2018 00:00:00 [place] [id number] 2018 00:00:00 [facility] MEDICARE NOVITAS [id number] 2018 00:00:00 [facility] C1 [id number] 2018 00:00:00 [facility] MEDICARE NOVITAS [id number] 2018 00:00:00 [facility] C1 [id number] 2018 00:00:00 [facility] MEDICARE NOVITAS [id number] 2018 00:00:00 [facility] MEDICARE NOVITAS [id number] 2018 00:00:00 [facility] AARP C1 [id number] 2018 00:00:00 [facility] Problems Condition Name Condition Details Condition Category Status Onset Date Resolution Date Last Treatment Date Treating Clinician Comments Source [id number] Pseudophak ia of right eye Problem [facility] [id number] Vitreous degenerati on, bilateral Problem [facility] Decreased hearing Decreased hearing Problem [facility] [id number] Pain in left ankle and joints of left foot Problem [facility] [id number] Primary osteoarthr itis involving multiple joints Problem [facility] [id number] Body mass index [BMI] 36.0-36.9, adult Problem [facility] [id number] Chronic gout of right foot, unspecifie d cause Problem [facility] 53589288 Non-season al allergic rhinitis, unspecifie d trigger Problem [facility] 235119738 Diabetic polyneurop athy associated with type 2 diabetes mellitus Problem [facility] Basal cell carcinoma of neck (disorder) Basal cell carcinoma (BCC) of neck Problem [facility] 51353850 Type 2 diabetes mellitus with hyperglyce deb, without long-term current use of insulin Problem [facility] 84942837 Obstructiv e sleep apnea (adult) (pediatric ) Problem [facility] 49347357 Essential hypertensi on Problem [facility] 607050252 Chronic hepatitis C without hepatic coma Problem [facility] Male hypogonadi sm Hypogonadi sm in male Problem [facility] 430757124 Erectile dysfunctio n, unspecifie d erectile dysfunctio n type Problem [facility] 51313522 Chronic fatigue Problem [facility] 858905085 Morbid (severe) obesity due to excess calories Problem [facility] [id number] Type 2 diabetes mellitus with other diabetic kidney complicati on Problem [facility] 863854982 Paroxysmal atrial fibrillati on Problem [facility] Impotence of organic origin ED (erectile dysfunctio n) Problem [facility] 700548424 Mixed hyperlipid emia Problem [facility] [id number] Non-pressu re chronic ulcer of right heel and midfoot with unspecifie d severity Problem [facility] 364022180 Type 2 diabetes mellitus with foot ulcer Problem [facility] Social History Social Habit Start Date Stop Date Quantity Comments Source History of Tobacco Use [facility] Sex Assigned At [facility] Smoking Status Start Date Stop Date Source Never Smoker [facility] Medications Ordered Medication Name Filled Medication Name Start Date Stop Date Current Medication? Ordering Clinician Indication Dosage Frequency Signature (SIG) Comments Components Source traMADol HCl 50 MG traMADol HCl 50 MG 4 00:00: 00 No 1{table t_as_ne eded} QD traMADol HCl 50 MG Gabapentin 300 MG Gabapentin 300 MG No 2{capsu le} BID Gabapentin 300 MG Allopurinol 100 MG Allopurinol 100 MG No 1{table t} QD Allopurino l 100 MG Meloxicam 15 MG Meloxicam 15 MG No 1{table t_as_ne eded} QD Meloxicam 15 MG Montelukast Sodium 10 MG Montelukast Sodium 10 MG No 1{table t} QD Montelukas t Sodium 10 MG Sotalol HCl 80 MG Sotalol HCl 80 MG No 1{table t} BID Sotalol HCl 80 MG glipiZIDE XL 5 MG glipiZIDE XL 5 MG No 1{table t_with_ food} BID glipiZIDE XL 5 MG metFORMIN HCl ER 500 MG metFORMIN HCl ER 500 MG No BID metFORMIN HCl ER 500 MG Lisinopril 10 MG Lisinopril 10 MG No 1{table t} QD Lisinopril 10 MG Immunizations Ordered Immunization Name Filled Immunization Name Date Status Comments Source FLUZONE HIGH DOSE OVER 65 FLUZONE HIGH DOSE OVER 65 2022-01-04 11:00:00 Completed [facility] FLUZONE HIGH DOSE OVER 65 FLUZONE HIGH DOSE OVER 65 2022-01-04 11:00:00 Completed [facility] FLUZONE HIGH DOSE OVER 65 FLUZONE HIGH DOSE OVER 65 2022-01-04 11:00:00 Completed [facility] Prevnar 20 (PCV20) Prevnar 20 (PCV20) Unknown Completed [facility] FLUZONE HIGH DOSE OVER 65 FLUZONE HIGH DOSE OVER 65 Unknown Completed [facility] Prevnar 20 (PCV20) Prevnar 20 (PCV20) Unknown Completed [facility] FLUZONE HIGH DOSE OVER 65 FLUZONE HIGH DOSE OVER 65 Unknown Completed [facility] Prevnar 20 (PCV20) Prevnar 20 (PCV20) Unknown Completed [facility] FLUZONE HIGH DOSE OVER 65 FLUZONE HIGH DOSE OVER 65 Unknown Completed [facility] Prevnar 20 (PCV20) Prevnar 20 (PCV20) Unknown Completed [facility] FLUZONE HIGH DOSE OVER 65 FLUZONE HIGH DOSE OVER 65 Unknown Completed [facility] Prevnar 20 (PCV20) Prevnar 20 (PCV20) Unknown Completed [facility] FLUZONE HIGH DOSE OVER 65 FLUZONE HIGH DOSE OVER 65 Unknown Completed [facility] Prevnar 20 (PCV20) Prevnar 20 (PCV20) Unknown Completed [facility] FLUZONE HIGH DOSE OVER 65 FLUZONE HIGH DOSE OVER 65 Unknown Completed [facility] Prevnar 20 (PCV20) Prevnar 20 (PCV20) Unknown Completed [facility] FLUZONE HIGH DOSE OVER 65 FLUZONE HIGH DOSE OVER 65 Unknown Completed [facility] Prevnar 20 (PCV20) Prevnar 20 (PCV20) Unknown Completed [facility] FLUZONE HIGH DOSE OVER 65 FLUZONE HIGH DOSE OVER 65 Unknown Completed [facility] Prevnar 20 (PCV20) Prevnar 20 (PCV20) Unknown Completed [facility] FLUZONE HIGH DOSE OVER 65 FLUZONE HIGH DOSE OVER 65 Unknown Completed [facility] Prevnar 20 (PCV20) Prevnar 20 (PCV20) Unknown Completed [facility] FLUZONE HIGH DOSE OVER 65 FLUZONE HIGH DOSE OVER 65 Unknown Completed [facility] Prevnar 20 (PCV20) Prevnar 20 (PCV20) Unknown Completed [facility] FLUZONE HIGH DOSE OVER 65 FLUZONE HIGH DOSE OVER 65 Unknown Completed [facility] Prevnar 20 (PCV20) Prevnar 20 (PCV20) Unknown Completed [facility] FLUZONE HIGH DOSE OVER 65 FLUZONE HIGH DOSE OVER 65 Unknown Completed [facility] Prevnar 20 (PCV20) Prevnar 20 (PCV20) Unknown Completed [facility] FLUZONE HIGH DOSE OVER 65 FLUZONE HIGH DOSE OVER 65 Unknown Completed [facility] Vital Signs Vital Name Observation Time Observation Value Comments S ource height 2023-06-02 08:50:00 73 [in_i] Commo n [facility] weight 2023-06-02 08:50:00 273.0 [lb_av] Co mmon [facility] temperature 2023-06-02 08:50:00 97.4 [degF] Com mon [facility] bmi 2023-06-02 08:50:00 36.01 kg/m2 Comm on [facility] oximetry 2023-06-02 08:50:00 95 % Commo n [facility] respiratory rate 2023-06-02 08:50:00 17 /min [facility] blood pressure systolic 2023-06-02 08:50:00 138 mm[Hg] [facility] blood pressure diastolic 2023-06-02 08:50:00 76 mm[Hg] [facility] height 2023-03-07 08:40:00 73 [in_i] Commo n [facility] weight 2023-03-07 08:40:00 280.4 [lb_av] Co mmon [facility] temperature 2023-03-07 08:40:00 97.6 [degF] Com [facility] bmi 2023-03-07 08:40:00 36.99 kg/m2 Comm on [facility] oximetry 2023-03-07 08:40:00 96 % Commo n [facility] blood pressure systolic 2023-03-07 08:40:00 138 mm[Hg] [facility] blood pressure diastolic 2023-03-07 08:40:00 80 mm[Hg] Common [facility] height 2023-03-02 08:40:00 73 [in_i] Commo n [facility] weight 2023-03-02 08:40:00 279.8 [lb_av] Co mmon [facility] temperature 2023-03-02 08:40:00 97.6 [degF] Com [facility] bmi 2023-03-02 08:40:00 36.91 kg/m2 Comm on [facility] oximetry 2023-03-02 08:40:00 96 % Commo n [facility] blood pressure systolic 2023-03-02 08:40:00 136 mm[Hg] [facility] blood pressure diastolic 2023-03-02 08:40:00 74 mm[Hg] [facility] height 2022-11-29 08:30:00 73 [in_i] Commo n [facility] weight 2022-11-29 08:30:00 278.0 [lb_av] Co mmon [facility] temperature 2022-11-29 08:30:00 98.0 [degF] Com [facility] bmi 2022-11-29 08:30:00 36.67 kg/m2 Comm on [facility] oximetry 2022-11-29 08:30:00 97 % Commo n [facility] respiratory rate 2022-11-29 08:30:00 18 /min [facility] blood pressure systolic 2022-11-29 08:30:00 130 mm[Hg] [facility] blood pressure diastolic 2022-11-29 08:30:00 77 mm[Hg] [facility] height 2022-09-03 08:30:00 73 [in_i] Commo n [facility] weight 2022-09-03 08:30:00 280.4 [lb_av] Co [facility] temperature 2022-09-03 08:30:00 97.7 [degF] Com [facility] bmi 2022-09-03 08:30:00 36.99 kg/m2 Comm on [facility] blood pressure systolic 2022-09-03 08:30:00 139 mm[Hg] [facility] blood pressure diastolic 2022-09-03 08:30:00 78 mm[Hg] [facility] height 2022-09-02 09:30:00 73 [in_i] Commo n [facility] weight 2022-09-02 09:30:00 280.4 [lb_av] Co mmon [facility] temperature 2022-09-02 09:30:00 97.7 [degF] Com [facility] bmi 2022-09-02 09:30:00 36.99 kg/m2 Comm on [facility] oximetry 2022-09-02 09:30:00 94 % Commo n [facility] respiratory rate 2022-09-02 09:30:00 16 /min [facility] blood pressure systolic 2022-09-02 09:30:00 138 mm[Hg] [facility] blood pressure diastolic 2022-09-02 09:30:00 65 mm[Hg] [facility] height 2022-09-02 10:00:00 73 [in_i] Commo n [facility] weight 2022-09-02 10:00:00 280.4 [lb_av] Co mmon [facility] temperature 2022-09-02 10:00:00 97.7 [degF] Com mon [facility] bmi 2022-09-02 10:00:00 36.99 kg/m2 Comm on [facility] oximetry 2022-09-02 10:00:00 94 % Commo n [facility] respiratory rate 2022-09-02 10:00:00 16 /min [facility] blood pressure systolic 2022-09-02 10:00:00 148 mm[Hg] [facility] blood pressure diastolic 2022-09-02 10:00:00 67 mm[Hg] [facility] height 2022-05-06 13:10:00 73 [in_i] Commo n [facility] weight 2022-05-06 13:10:00 271.1 [lb_av] Co mmon [facility] temperature 2022-05-06 13:10:00 96.9 [degF] Com mon [facility] bmi 2022-05-06 13:10:00 35.76 kg/m2 Comm on [facility] oximetry 2022-05-06 13:10:00 96 % Commo n [facility] respiratory rate 2022-05-06 13:10:00 16 /min Common [facility] blood pressure systolic 2022-05-06 13:10:00 138 mm[Hg] [facility] blood pressure diastolic 2022-05-06 13:10:00 73 mm[Hg] [facility] height 2022-04-29 09:00:00 73 [in_i] Commo n [facility] weight 2022-04-29 09:00:00 268.8 [lb_av] Co on [facility] temperature 2022-04-29 09:00:00 97.0 [degF] Com [facility] bmi 2022-04-29 09:00:00 35.46 kg/m2 Comm on [facility] oximetry 2022-04-29 09:00:00 92 % Commo n [facility] respiratory rate 2022-04-29 09:00:00 16 /min Common [facility] blood pressure systolic 2022-04-29 09:00:00 139 mm[Hg] [facility] blood pressure diastolic 2022-04-29 09:00:00 79 mm[Hg] Common [facility] height 2022-01-04 10:20:00 73 [in_i] Commo n [facility] weight 2022-01-04 10:20:00 274.2 [lb_av] Co [facility] temperature 2022-01-04 10:20:00 97.8 [degF] Com [facility] bmi 2022-01-04 10:20:00 36.17 kg/m2 Comm on [facility] oximetry 2022-01-04 10:20:00 96 % Commo n [facility] respiratory rate 2022-01-04 10:20:00 17 /min Common [facility] blood pressure systolic 2022-01-04 10:20:00 132 mm[Hg] Common [facility] blood pressure diastolic 2022-01-04 10:20:00 76 mm[Hg] Common [facility] height 2021-10-01 11:10:00 73 [in_i] Commo n [facility] weight 2021-10-01 11:10:00 275.9 [lb_av] Co [facility] temperature 2021-10-01 11:10:00 97.0 [degF] Com mon [facility] bmi 2021-10-01 11:10:00 36.4 kg/m2 Commo n [facility] oximetry 2021-10-01 11:10:00 97 % Commo n [facility] respiratory rate 2021-10-01 11:10:00 17 /min Common [facility] blood pressure systolic 2021-10-01 11:10:00 129 mm[Hg] Common [facility] blood pressure diastolic 2021-10-01 11:10:00 77 mm[Hg] [facility] height 2021-09-24 17:00:00 73 [in_i] Commo n [facility] weight 2021-09-24 17:00:00 275.4 [lb_av] Co mmon [facility] temperature 2021-09-24 17:00:00 98.5 [degF] Com [facility] bmi 2021-09-24 17:00:00 36.33 kg/m2 Comm on [facility] oximetry 2021-09-24 17:00:00 98 % Commo n [facility] respiratory rate 2021-09-24 17:00:00 16 /min Common [facility] blood pressure systolic 2021-09-24 17:00:00 171 mm[Hg] Common [facility] blood pressure diastolic 2021-09-24 17:00:00 85 mm[Hg] [facility] height 2021-07-08 08:10:00 73 [in_i] Commo n [facility] weight 2021-07-08 08:10:00 279.2 [lb_av] Co mmon [facility] temperature 2021-07-08 08:10:00 97.9 [degF] Com [facility] bmi 2021-07-08 08:10:00 36.83 kg/m2 Comm on [facility] oximetry 2021-07-08 08:10:00 96 % Commo n [facility] respiratory rate 2021-07-08 08:10:00 17 /min [facility] blood pressure systolic 2021-07-08 08:10:00 132 mm[Hg] [facility] blood pressure diastolic 2021-07-08 08:10:00 76 mm[Hg] [facility] height 2021-07-08 08:00:00 73 [in_i] Commo n [facility] weight 2021-07-08 08:00:00 279.2 [lb_av] Co [facility] temperature 2021-07-08 08:00:00 97.9 [degF] Com [facility] bmi 2021-07-08 08:00:00 36.83 kg/m2 Comm on [facility] oximetry 2021-07-08 08:00:00 96 % Commo n [facility] respiratory rate 2021-07-08 08:00:00 17 /min [facility] blood pressure systolic 2021-07-08 08:00:00 132 mm[Hg] Common [facility] blood pressure diastolic 2021-07-08 08:00:00 76 mm[Hg] Common [facility] height 2021-03-20 09:20:00 73 [in_i] Commo n [facility] weight 2021-03-20 09:20:00 273.0 [lb_av] Co [facility] temperature 2021-03-20 09:20:00 97.9 [degF] Com [facility] bmi 2021-03-20 09:20:00 36.01 kg/m2 Comm on [facility] oximetry 2021-03-20 09:20:00 98 % Commo n [facility] respiratory rate 2021-03-20 09:20:00 17 /min Common [facility] blood pressure systolic 2021-03-20 09:20:00 137 mm[Hg] Common [facility] blood pressure diastolic 2021-03-20 09:20:00 74 mm[Hg] [facility] height 2021-01-26 10:00:00 73 [in_i] Commo n [facility] weight 2021-01-26 10:00:00 263.5 [lb_av] Co [facility] temperature 2021-01-26 10:00:00 97.8 [degF] Com [facility] bmi 2021-01-26 10:00:00 34.76 kg/m2 Comm on [facility] oximetry 2021-01-26 10:00:00 97 % Commo n [facility] respiratory rate 2021-01-26 10:00:00 17 /min [facility] blood pressure systolic 2021-01-26 10:00:00 131 mm[Hg] [facility] blood pressure diastolic 2021-01-26 10:00:00 70 mm[Hg] [facility] height 2020-12-15 08:50:00 73 [in_i] Commo n [facility] weight 2020-12-15 08:50:00 270.2 [lb_av] Co mmon [facility] temperature 2020-12-15 08:50:00 97.1 [degF] Com [facility] bmi 2020-12-15 08:50:00 35.64 kg/m2 Comm on [facility] oximetry 2020-12-15 08:50:00 98 % Commo n [facility] respiratory rate 2020-12-15 08:50:00 18 /min [facility] blood pressure systolic 2020-12-15 08:50:00 138 mm[Hg] [facility] blood pressure diastolic 2020-12-15 08:50:00 82 mm[Hg] [facility] Encounters Start Date/Time End Date/Time Encounter Type Admission Type Attending [facility] Care Facility Care Department Encounter ID Source 2023-08-26 15:17:00 Outpatient Deng, Yoni STLMLC STLMLC [id number] [facility] 2023-06-01 12:38:00 Outpatient Deng, Yoni STLMLC ST[facility] [id number] [facility] 2022-11-26 11:05:00 Outpatient Deng, Yoni STLMLC ST[facility] [id number] [facility] 2022-09-03 10:36:00 Outpatient Deng, Yoni STLMLC ST[facility] [id number] [facility] 2022-08-24 11:43:00 Outpatient Deng, Yoni STLMLC STL[facility]C [id number] [facility] 2021-12-31 11:20:02 Outpatient Deng, Yoni STLMLC STLMLC [id number] [facility] 2021-06-22 15:20:04 Outpatient Deng, Yoni STLMLC ST[facility]C [id number] [facility] 2021-03-25 14:38:26 Outpatient Deng, Yoni STLMLC STL[facility]C [id number] [facility] 2021-03-25 14:01:05 Outpatient Deng, Yoni STLMLC STLMLC [id number] [facility] 2021-03-25 13:27:25 Outpatient Deng, Yoni STLMLC STL[facility]C [id number] [facility] 2021-03-25 12:43:39 Outpatient Deng, Yoni STLMLC STLMLC [id number] [facility] 2021-03-25 12:43:06 Outpatient Deng, Yoni STLMLC STL[facility]C [id number] [facility] 2021-03-25 12:35:52 Outpatient STLMLC STLMLC [id number] [facility] 2023-08-26 00:00:00 2023-08-26 00:00:00 (TEL) STLMLC STLMLC [id number] [facility] 2023-06-02 00:00:00 2023-06-02 00:00:00 OFFICE VISIT ESTAB PT LEVEL 4 STLMLC STLMLC [id number] [facility] 2023-03-07 00:00:00 2023-03-07 00:00:00 OFFICE VISIT ESTAB PT LEVEL 3 [facility]LMLC STLMLC [id number] [facility] 2023-03-02 00:00:00 2023-03-02 00:00:00 OFFICE VISIT ESTAB PT LEVEL 4 [facility]LMLC STLMLC [id number] [facility] 2022-12-17 00:00:00 2022-12-17 00:00:00 (TEL) STLMLC STLMLC [id number] [facility] 2022-11-29 00:00:00 2022-11-29 00:00:00 OFFICE VISIT ESTAB PT LEVEL 4 STLMLC STLMLC [id number] [facility] 2022-09-07 00:00:00 2022-09-07 00:00:00 (TEL) STLMLC STLMLC [id number] [facility] 2022-09-03 00:00:00 2022-09-03 00:00:00 OFFICE VISIT NEW PT LEVEL 3 STLMLC STLMLC [id number] [facility] 2022-09-02 00:00:00 2022-09-02 00:00:00 OFFICE VISIT ESTAB PT LEVEL 4 [facility]LMLC STLMLC [id number] [facility] 2022-09-02 00:00:00 2022-09-02 00:00:00 SUB ANNUAL MCR WELLNESS VISIT STLMLC STLMLC [id number] [facility] 2022-06-07 00:00:00 2022-06-07 00:00:00 (TEL) STLMLC STLMLC [id number] [facility] 2022-05-06 00:00:00 2022-05-06 00:00:00 OFFICE VISIT ESTAB PT LEVEL 3 STLMLC STLMLC [id number] [facility] 2022-04-29 00:00:00 2022-04-29 00:00:00 OFFICE VISIT ESTAB PT LEVEL 4 STLMLC STLMLC [id number] [facility] 2022-02-23 00:00:00 2022-02-23 00:00:00 (TEL) STLMLC STLMLC [id number] [facility] 2022-01-04 00:00:00 2022-01-04 00:00:00 OFFICE VISIT ESTAB PT LEVEL 4 STLMLC STLMLC [id number] [facility] 2021-12-25 00:00:00 2021-12-25 00:00:00 (TEL) STLMLC STLMLC [id number] [facility] 2021-10-19 00:00:00 2021-10-19 00:00:00 (TEL) STLMLC STLMLC [id number] [facility] 2021-10-01 00:00:00 2021-10-01 00:00:00 OFFICE VISIT ESTAB PT LEVEL 4 STLMLC STLMLC [id number] [facility] 2021-09-24 00:00:00 2021-09-24 00:00:00 OFFICE VISIT ESTAB PT LEVEL 4 STLMLC STLMLC [id number] [facility] 2021-07-08 00:00:00 2021-07-08 00:00:00 OFFICE VISIT ESTAB PT LEVEL 4 STLMLC STLMLC [id number] [facility] 2021-07-08 00:00:00 2021-07-08 00:00:00 (TEL) STLMLC STLMLC [id number] [facility] 2021-07-08 00:00:00 2021-07-08 00:00:00 SUB ANNUAL [facility] WELLNESS VISIT STLMLC STLMLC [id number] [facility] 2021-03-20 00:00:00 2021-03-20 00:00:00 OFFICE VISIT ESTAB PT LEVEL 4 STLMLC STLMLC [id number] [facility] 2021-03-13 00:00:00 2021-03-13 00:00:00 (TEL) STLMLC STLMLC [id number] [facility] 2021-02-03 00:00:00 2021-02-03 00:00:00 (TEL) STLMLC STLMLC [id number] [facility] 2021-01-29 00:00:00 2021-01-29 00:00:00 (TEL) STLMLC STLMLC [id number] [facility] 2021-01-26 00:00:00 2021-01-26 00:00:00 (HOSP F/U) Hospital Follow Up STLMLC STLMLC [id number] [facility] 2021-01-21 00:00:00 2021-01-21 00:00:00 (TEL) STLMLC STLMLC [id number] [facility] 2021-01-20 00:00:00 2021-01-20 00:00:00 (TEL) STLMLC STLMLC [id number] [facility] 2020-12-15 00:00:00 2020-12-15 00:00:00 OFFICE VISIT ESTAB PT LEVEL 4 STLMLC STLMLC [id number] [facility] 2020-09-18 00:00:00 2020-09-18 00:00:00 Outpatient STLMLC STLMLC [id number] [facility] 2020-09-15 00:00:00 2020-09-15 00:00:00 Outpatient STLMLC STLMLC [id number] [facility] 2020-09-15 00:00:00 2020-09-15 00:00:00 Outpatient STLMLC STLMLC [id number] [facility] 2020-09-09 00:00:00 2020-09-09 00:00:00 Outpatient STLMLC STLMLC [id number] [facility] 2020-06-19 00:00:00 2020-06-19 00:00:00 Outpatient STLMLC STLMLC [id number] [facility] 2020-06-12 00:00:00 2020-06-12 00:00:00 Outpatient STLMLC STLMLC [id number] [facility] 2020-06-10 00:00:00 2020-06-10 00:00:00 Outpatient STLMLC STLMLC [id number] [facility] 2020-06-10 00:00:00 2020-06-10 00:00:00 Outpatient STLMLC STLMLC [id number] [facility] 2020-05-21 00:00:00 2020-05-21 00:00:00 Outpatient STLMLC STLMLC [id number] [facility] 2020-05-06 00:00:00 2020-05-06 00:00:00 Outpatient STLMLC STLMLC [id number] [facility] 2020-04-30 00:00:00 2020-04-30 00:00:00 Outpatient STLMLC STLMLC [id number] [facility] Results Test Description Test Time Test Comments Results Result Co mments Source URIC [id number] 00:00:00* Test Item Value Reference Range Interpretation Comme [facility] URIC ACID (test code = 2501-5) 5.7 MG/DL See_Comment [Automated messa ge] The system which generated this result transmitted reference range: 3.7-8.0 MG/DL. The reference range was not used to interpret this result as normal/abnormal. HEMOGLOBIN [id number] 00:00:00* Test Item Value Reference Range Interpretation Comme [facility] HEMOGLOBIN A1c (test code = 4548-4) 8.8 % See_Comment H [Automated messa ge] The system which generated this result transmitted reference range: 4.2-5.6 %. The reference range was not used to interpret this result as normal/abnormal. HCV RNA, PCR [id number] 00:00:00* Test Item Value Reference Range Interpretation Comme nts HCV QUALITATIVE INTERP (test code = 30469-4) NEGATIVE HCV RNA, PCR QUANT (test code = 20330-5) NOT DETEC IU/ML HCV VIRAL LOG (test code = 95493-5) NOT DETEC LOG IU/ML LIPID PANEL WITH REFLEX DIRECT [id number] 00:00:00* Test Item Value Reference Range Interpretation Comme nts CALC LDL CHOL (test code = 91744-7) 104 MG/DL See_Comment H [Automated [employer]] The system which generated this result transmitted reference range: <100 MG/DL. The reference range was not used to interpret this result as normal/abnormal. CHOLESTEROL (test code = 2093-3) 180 MG/DL See_Comment [Automated [employer]] The system which generated this result transmitted reference range: <200 MG/DL. The reference range was not used to interpret this result as normal/abnormal. HDL CHOLESTEROL (test code = 2085-9) 57 MG/DL See_Comment [Automated [employer]] The system which generated this result transmitted reference range: >39 MG/DL. The reference range was not used to interpret this result as normal/abnormal. RISK RATIO LDL/HDL (test code = 88750-0) 1.82 RATIO See_Comment [Automated message] The system which generated this result transmitted reference range: <3.55 RATIO. The reference range was not used to interpret this result as normal/abnormal. TRIGLYCERIDES (test code = 2571-8) 97 MG/DL See_Comment [Automated [employer]] The system which generated this result transmitted reference range: <150 MG/DL. The reference range was not used to interpret this result as normal/abnormal. ALBUMIN/CREATININE RATIO, RANDOM [id number] 00:00:00* Test Item Value Reference Range Interpretation Comme nts ALBUMIN, URINE, RANDOM (test code = 22377-0) 1.9 MG/DL NOT ESTAB MG/DL CALC ALBUMIN/CREAT, RND (test code = 85460-6) 19 MG/G See_Comment [Automated messa ge] The system which generated this result transmitted reference range: <30 MG/G. The reference range was not used to interpret this result as normal/abnormal. CREATININE, URINE, CONC. (test code = 2161-8) 98.0 MG/DL NOT ESTAB MG/DL COMPREHENSIVE METABOLIC [id number] 00:00:00* Test Item Value Reference Range Interpretation Comme nts ALBUMIN (test code = 1751-7) 4.3 G/DL See_Comment [Automated messa ge] The system which generated this result transmitted reference range: 3.5-5.2 G/DL. The reference range was not used to interpret this result as normal/abnormal. ALKALINE PHOSPHATASE (test code = 6768-6) 62 U/L See_Comment [Automated message] The system which generated this result transmitted reference range: 40-125 U/L. The reference range was not used to interpret this result as normal/abnormal. BILIRUBIN, TOTAL (test code = 1975-2) 0.6 MG/DL See_Comment [Automated message] The system which generated this result transmitted reference range: <=1.2 MG/DL. The reference range was not used to interpret this result as normal/abnormal. BUN (test code = 3094-0) 18 MG/DL See_Comment [Automated messa ge] The system which generated this result transmitted reference range: 8-23 MG/DL. The reference range was not used to interpret this result as normal/abnormal. CALCIUM (test code = 79077-6) 9.1 MG/DL See_Comment [Automated messa ge] The system which generated this result transmitted reference range: 8.5-10.5 MG/DL. The reference range was not used to interpret this result as normal/abnormal. CALC A/G RATIO (test code = 1759-0) 1.6 RATIO See_Comment [Automated messa ge] The system which generated this result transmitted reference range: 1.0-2.6 RATIO. The reference range was not used to interpret this result as normal/abnormal. CALC BUN/CREAT (test code = 3097-3) 16 RATIO See_Comment [Automated messa ge] The system which generated this result transmitted reference range: 6-28 RATIO. The reference range was not used to interpret this result as normal/abnormal. CALC GLOBULIN (test code = 54598-2) 2.7 G/DL See_Comment [Automated messa ge] The system which generated this result transmitted reference range: 1.9-3.7 G/DL. The reference range was not used to interpret this result as normal/abnormal. CARBON DIOXIDE (test code = 1963-8) 27 MEQ/L See_Comment [Automated messa ge] The system which generated this result transmitted reference range: 19-31 MEQ/L. The reference range was not used to interpret this result as normal/abnormal. CHLORIDE (test code = 2075-0) 101 MEQ/L See_Comment [Automated messa ge] The system which generated this result transmitted reference range: 95-107 MEQ/L. The reference range was not used to interpret this result as normal/abnormal. CREATININE (test code = 2160-0) 1.14 MG/DL See_Comment [Automated messa ge] The system which generated this result transmitted reference range: 0.80-1.40 MG/DL. The reference range was not used to interpret this result as normal/abnormal. eGFR (2020 CKD-EPI) (test code = 16622-6) 70 ML/MIN/1.73 See_Comment [Automated messa ge] The system which generated this result transmitted reference range: >60 ML/MIN/1.73. The reference range was not used to interpret this result as normal/abnormal. GLUCOSE (test code = 1558-6) 161 MG/DL See_Comment H [Automated messa ge] The system which generated this result transmitted reference range: 70-99 MG/DL. The reference range was not used to interpret this result as normal/abnormal. POTASSIUM (test code = 2823-3) 4.8 MEQ/L See_Comment [Automated messa ge] The system which generated this result transmitted reference range: 3.5-5.4 MEQ/L. The reference range was not used to interpret this result as normal/abnormal. PROTEIN, TOTAL (test code = 2885-2) 7.0 G/DL See_Comment [Automated messa ge] The system which generated this result transmitted reference range: 6.1-8.3 G/DL. The reference range was not used to interpret this result as normal/abnormal. AST (test code = 1920-8) 18 U/L See_Comment [Automated messa ge] The system which generated this result transmitted reference range: 9-50 U/L. The reference range was not used to interpret this result as normal/abnormal. ALT (test code = 1742-6) 18 U/L See_Comment [Automated messa ge] The system which generated this result transmitted reference range: 5-50 U/L. The reference range was not used to interpret this result as normal/abnormal. SODIUM (test code = 2951-2) 139 MEQ/L See_Comment [Automated messa ge] The system which generated this result transmitted reference range: 133-146 MEQ/L. The reference range was not used to interpret this result as normal/abnormal. CBC W/AUTO [id number] 00:00:00* Test Item Value Reference Range Interpretation Comme nts NUCLEATED RBCS (test code = 63224-8) 0.0 /100 WBC'S See_Comment [Automated messa ge] The system which generated this result transmitted reference range: 0.0 /100 WBC'S. The reference range was not used to interpret this result as normal/abnormal. ABSOLUTE EOSINOPHILS (test code = 77210-6) 0.35 K/UL See_Comment [Automated messa ge] The system which generated this result transmitted reference range: 0.00-0.50 K/UL. The reference range was not used to interpret this result as normal/abnormal. ABSOLUTE LYMPHOCYTES (test code = 64909-9) 1.91 K/UL See_Comment [Automated messa ge] The system which generated this result transmitted reference range: 1.00-4.00 K/UL. The reference range was not used to interpret this result as normal/abnormal. ABSOLUTE MONOCYTES (test code = 82239-5) 0.86 K/UL See_Comment [Automated messa ge] The system which generated this result transmitted reference range: 0.20-1.00 K/UL. The reference range was not used to interpret this result as normal/abnormal. ABSOLUTE NEUTROPHILS (test code = 48704-1) 6.15 K/UL See_Comment [Automated messa ge] The system which generated this result transmitted reference range: 1.50-7.50 K/UL. The reference range was not used to interpret this result as normal/abnormal. BASOPHILS (test code = 17768-5) 1.3 % EOSINOPHILS (test code = 27623-3) 3.7 % HEMATOCRIT (test code = 38807-8) 39.2 % See_Comment L [Automated messa ge] The system which generated this result transmitted reference range: 40.0-51.0 %. The reference range was not used to interpret this result as normal/abnormal. HEMOGLOBIN (test code = 718-7) 13.0 G/DL See_Comment L [Automated messa ge] The system which generated this result transmitted reference range: 13.5-17.0 G/DL. The reference range was not used to interpret this result as normal/abnormal. LYMPHOCYTES (test code = 22118-6) 20.3 % MCH (test code = 99805-1) 30.7 PG See_Comment [Automated messa ge] The system which generated this result transmitted reference range: 25.0-33.0 PG. The reference range was not used to interpret this result as normal/abnormal. MCHC (test code = 93893-5) 33.2 G/DL See_Comment [Automated messa ge] The system which generated this result transmitted reference range: 31.0-36.0 G/DL. The reference range was not used to interpret this result as normal/abnormal. MCV (test code = 91426-7) 92.5 fL See_Comment [Automated messa ge] The system which generated this result transmitted reference range: 80.0-99.0 fL. The reference range was not used to interpret this result as normal/abnormal. MONOCYTES (test code = 51616-3) 9.1 % NEUTROPHILS (test code = 51916-4) 65.3 % PLATELET COUNT (test code = 34347-8) 195 K/UL See_Comment [Automated messa ge] The system which generated this result transmitted reference range: 130-400 K/UL. The reference range was not used to interpret this result as normal/abnormal. RBC (test code = 58919-1) 4.24 M/UL See_Comment L [Automated messa ge] The system which generated this result transmitted reference range: 4.50-6.10 M/UL. The reference range was not used to interpret this result as normal/abnormal. RDW (test code = 25162-2) 12.5 % See_Comment [Automated messa ge] The system which generated this result transmitted reference range: 11.5-15.0 %. The reference range was not used to interpret this result as normal/abnormal. WBC (test code = 34706-5) 9.4 K/UL See_Comment [Automated messa ge] The system which generated this result transmitted reference range: 3.5-11.0 K/UL. The reference range was not used to interpret this result as normal/abnormal. URIC [id number] 00:00:00* Test Item Value Reference Range Interpretation Comme [facility] URIC ACID (test code = 2501-5) 6.4 MG/DL See_Comment [Automated messa ge] The system which generated this result transmitted reference range: 3.7-8.0 MG/DL. The reference range was not used to interpret this result as normal/abnormal. PSA W/REFLEX TO FREE [id number] 00:00:00* Test Item Value Reference [facility] Interpretation [facility] PROSTATE SPECIFIC AG (test code = 66666-2) 0.36 NG/ML See_Comment [Automated messa ge] The system which generated this result transmitted reference range: <=4.00 NG/ML. The reference range was not used to interpret this result as normal/abnormal. HEMOGLOBIN [id number] 00:00:00* Test Item Value Reference Range Interpretation [facility] HEMOGLOBIN A1c (test code = 4548-4) 8.1 % See_Comment H [Automated [employer]] The system which generated this result transmitted reference range: 4.2-5.6 %. The reference range was not used to interpret this result as normal/abnormal. LIPID PANEL WITH REFLEX DIRECT [id number] 00:00:00* Test Item Value Reference Range Interpretation [facility] CALC LDL CHOL (test code = 02563-6) 119 MG/DL See_Comment H [Automated messa ge] The system which generated this result transmitted reference range: <100 MG/DL. The reference range was not used to interpret this result as normal/abnormal. CHOLESTEROL (test code = 2093-3) 198 MG/DL See_Comment [Automated messa ge] The system which generated this result transmitted reference range: <200 MG/DL. The reference range was not used to interpret this result as normal/abnormal. HDL CHOLESTEROL (test code = 2085-9) 59 MG/DL See_Comment [Automated messa ge] The system which generated this result transmitted reference range: >39 MG/DL. The reference range was not used to interpret this result as normal/abnormal. RISK RATIO LDL/HDL (test code = 68524-1) 2.02 RATIO See_Comment [Automated message] The system which generated this result transmitted reference range: <3.55 RATIO. The reference range was not used to interpret this result as normal/abnormal. TRIGLYCERIDES (test code = 2571-8) 98 MG/DL See_Comment [Automated [employer]] The system which generated this result transmitted reference range: <150 MG/DL. The reference range was not used to interpret this result as normal/abnormal. ALBUMIN/CREATININE RATIO, RANDOM [id number] 00:00:00* Test Item Value Reference Range Interpretation Comme nts ALBUMIN, URINE, RANDOM (test code = 80096-6) 3.4 MG/DL NOT ESTAB MG/DL CALC ALBUMIN/CREAT, RND (test code = 10595-0) 37 MG/G See_Comment H [Automated [employer]] The system which generated this result transmitted reference range: <30 MG/G. The reference range was not used to interpret this result as normal/abnormal. CREATININE, URINE, CONC. (test code = 2161-8) 91.9 MG/DL NOT ESTAB MG/DL COMPREHENSIVE METABOLIC [id number] 00:00:00* Test Item Value Reference Range Interpretation Comme nts ALBUMIN (test code = 1751-7) 4.3 G/DL See_Comment [Automated [employer]] The system which generated this result transmitted reference range: 3.5-5.2 G/DL. The reference range was not used to interpret this result as normal/abnormal. ALKALINE PHOSPHATASE (test code = 6768-6) 65 U/L See_Comment [Automated message] The system which generated this result transmitted reference range: 40-125 U/L. The reference range was not used to interpret this result as normal/abnormal. BILIRUBIN, TOTAL (test code = 1975-2) 0.6 MG/DL See_Comment [Automated message] The system which generated this result transmitted reference range: <=1.2 MG/DL. The reference range was not used to interpret this result as normal/abnormal. BUN (test code = 3094-0) 26 MG/DL See_Comment H [Automated messa ge] The system which generated this result transmitted reference range: 8-23 MG/DL. The reference range was not used to interpret this result as normal/abnormal. CALCIUM (test code = 24850-2) 9.3 MG/DL See_Comment [Automated messa ge] The system which generated this result transmitted reference range: 8.5-10.5 MG/DL. The reference range was not used to interpret this result as normal/abnormal. CALC A/G RATIO (test code = 1759-0) 1.4 RATIO See_Comment [Automated messa ge] The system which generated this result transmitted reference range: 1.0-2.6 RATIO. The reference range was not used to interpret this result as normal/abnormal. CALC BUN/CREAT (test code = 3097-3) 21 RATIO See_Comment [Automated messa ge] The system which generated this result transmitted reference range: 6-28 RATIO. The reference range was not used to interpret this result as normal/abnormal. CALC GLOBULIN (test code = 66124-2) 3.1 G/DL See_Comment [Automated messa ge] The system which generated this result transmitted reference range: 1.9-3.7 G/DL. The reference range was not used to interpret this result as normal/abnormal. CARBON DIOXIDE (test code = 1963-8) 27 MEQ/L See_Comment [Automated messa ge] The system which generated this result transmitted reference range: 19-31 MEQ/L. The reference range was not used to interpret this result as normal/abnormal. CHLORIDE (test code = 2075-0) 102 MEQ/L See_Comment [Automated messa ge] The system which generated this result transmitted reference range: 95-107 MEQ/L. The reference range was not used to interpret this result as normal/abnormal. CREATININE (test code = 2160-0) 1.22 MG/DL See_Comment [Automated messa ge] The system which generated this result transmitted reference range: 0.80-1.40 MG/DL. The reference range was not used to interpret this result as normal/abnormal. eGFR (2020 CKD-EPI) (test code = 85516-5) 64 ML/MIN/1.73 See_Comment [Automated messa ge] The system which generated this result transmitted reference range: >60 ML/MIN/1.73. The reference range was not used to interpret this result as normal/abnormal. GLUCOSE (test code = 1558-6) 160 MG/DL See_Comment H [Automated messa ge] The system which generated this result transmitted reference range: 70-99 MG/DL. The reference range was not used to interpret this result as normal/abnormal. POTASSIUM (test code = 2823-3) 4.8 MEQ/L See_Comment [Automated messa ge] The system which generated this result transmitted reference range: 3.5-5.4 MEQ/L. The reference range was not used to interpret this result as normal/abnormal. PROTEIN, TOTAL (test code = 2885-2) 7.4 G/DL See_Comment [Automated messa ge] The system which generated this result transmitted reference range: 6.1-8.3 G/DL. The reference range was not used to interpret this result as normal/abnormal. AST (test code = 1920-8) 22 U/L See_Comment [Automated messa ge] The system which generated this result transmitted reference range: 9-50 U/L. The reference range was not used to interpret this result as normal/abnormal. ALT (test code = 1742-6) 20 U/L See_Comment [Automated messa ge] The system which generated this result transmitted reference range: 5-50 U/L. The reference range was not used to interpret this result as normal/abnormal. SODIUM (test code = 2951-2) 142 MEQ/L See_Comment [Automated messa ge] The system which generated this result transmitted reference range: 133-146 MEQ/L. The reference range was not used to interpret this result as normal/abnormal. CBC W/AUTO [id number] 00:00:00* Test Item Value Reference Range Interpretation Comme nts NUCLEATED RBCS (test code = 45369-9) 0.0 /100 WBC'S See_Comment [Automated messa ge] The system which generated this result transmitted reference range: 0.0 /100 WBC'S. The reference range was not used to interpret this result as normal/abnormal. ABSOLUTE EOSINOPHILS (test code = 93637-2) 0.26 K/UL See_Comment [Automated messa ge] The system which generated this result transmitted reference range: 0.00-0.50 K/UL. The reference range was not used to interpret this result as normal/abnormal. ABSOLUTE LYMPHOCYTES (test code = 15688-1) 1.84 K/UL See_Comment [Automated messa ge] The system which generated this result transmitted reference range: 1.00-4.00 K/UL. The reference range was not used to interpret this result as normal/abnormal. ABSOLUTE MONOCYTES (test code = 59058-2) 0.71 K/UL See_Comment [Automated messa ge] The system which generated this result transmitted reference range: 0.20-1.00 K/UL. The reference range was not used to interpret this result as normal/abnormal. ABSOLUTE NEUTROPHILS (test code = 27203-4) 5.07 K/UL See_Comment [Automated messa ge] The system which generated this result transmitted reference range: 1.50-7.50 K/UL. The reference range was not used to interpret this result as normal/abnormal. BASOPHILS (test code = 41675-7) 1.0 % EOSINOPHILS (test code = 51425-5) 3.3 % HEMATOCRIT (test code = 58049-1) 36.8 % See_Comment L [Automated messa ge] The system which generated this result transmitted reference range: 40.0-51.0 %. The reference range was not used to interpret this result as normal/abnormal. HEMOGLOBIN (test code = 718-7) 12.1 G/DL See_Comment L [Automated messa ge] The system which generated this result transmitted reference range: 13.5-17.0 G/DL. The reference range was not used to interpret this result as normal/abnormal. LYMPHOCYTES (test code = 97130-9) 23.1 % MCH (test code = 32945-7) 30.9 PG See_Comment [Automated messa ge] The system which generated this result transmitted reference range: 25.0-33.0 PG. The reference range was not used to interpret this result as normal/abnormal. MCHC (test code = 73518-2) 32.9 G/DL See_Comment [Automated messa ge] The system which generated this result transmitted reference range: 31.0-36.0 G/DL. The reference range was not used to interpret this result as normal/abnormal. MCV (test code = 56579-7) 93.9 fL See_Comment [Automated messa ge] The system which generated this result transmitted reference range: 80.0-99.0 fL. The reference range was not used to interpret this result as normal/abnormal. MONOCYTES (test code = 34913-3) 8.9 % NEUTROPHILS (test code = 41981-0) 63.4 % PLATELET COUNT (test code = 59687-7) 188 K/UL See_Comment [Automated messa ge] The system which generated this result transmitted reference range: 130-400 K/UL. The reference range was not used to interpret this result as normal/abnormal. RBC (test code = 68956-9) 3.92 M/UL See_Comment L [Automated messa ge] The system which generated this result transmitted reference range: 4.50-6.10 M/UL. The reference range was not used to interpret this result as normal/abnormal. RDW (test code = 48541-9) 12.7 % See_Comment [Automated messa ge] The system which generated this result transmitted reference range: 11.5-15.0 %. The reference range was not used to interpret this result as normal/abnormal. WBC (test code = 42938-7) 8.0 K/UL See_Comment [Automated messa ge] The system which generated this result transmitted reference range: 3.5-11.0 K/UL. The reference range was not used to interpret this result as normal/abnormal. URIC [id number] 00:00:00* Test Item Value Reference Range Interpretation Comme nts URIC ACID (test code = 2501-5) 5.9 MG/DL See_Comment [Automated messa ge] The system which generated this result transmitted reference range: 3.7-8.0 MG/DL. The reference range was not used to interpret this result as normal/abnormal. HEMOGLOBIN [id number] 00:00:00* Test Item Value Reference Range Interpretation Comme nts HEMOGLOBIN A1c (test code = 4548-4) 9.1 % See_Comment H [Automated messa ge] The system which generated this result transmitted reference range: 4.2-5.6 %. The reference range was not used to interpret this result as normal/abnormal. LIPID PANEL WITH REFLEX DIRECT [id number] 00:00:00* Test Item Value Reference Range Interpretation Comme nts CALC LDL CHOL (test code = 24596-5) 103 MG/DL See_Comment H [Automated messa ge] The system which generated this result transmitted reference range: <100 MG/DL. The reference range was not used to interpret this result as normal/abnormal. CHOLESTEROL (test code = 2093-3) 182 MG/DL See_Comment [Automated messa ge] The system which generated this result transmitted reference range: <200 MG/DL. The reference range was not used to interpret this result as normal/abnormal. HDL CHOLESTEROL (test code = 2085-9) 56 MG/DL See_Comment [Automated messa ge] The system which generated this result transmitted reference range: >39 MG/DL. The reference range was not used to interpret this result as normal/abnormal. RISK RATIO LDL/HDL (test code = 18369-7) 1.84 RATIO See_Comment [Automated message] The system which generated this result transmitted reference range: <3.55 RATIO. The reference range was not used to interpret this result as normal/abnormal. TRIGLYCERIDES (test code = 2571-8) 131 MG/DL See_Comment [Automated messa ge] The system which generated this result transmitted reference range: <150 MG/DL. The reference range was not used to interpret this result as normal/abnormal. ALBUMIN/CREATININE RATIO, RANDOM [id number] 00:00:00* Test Item Value Reference Range Interpretation Comme nts ALBUMIN, URINE, RANDOM (test code = 38257-6) 0.8 MG/DL NOT ESTAB MG/DL CALC ALBUMIN/CREAT, RND (test code = 65656-5) 20 MG/G See_Comment [Automated messa ge] The system which generated this result transmitted reference range: <30 MG/G. The reference range was not used to interpret this result as normal/abnormal. CREATININE, URINE, CONC. (test code = 2161-8) 39.4 MG/DL NOT ESTAB MG/DL COMPREHENSIVE METABOLIC [id number] 00:00:00* Test Item Value Reference Range Interpretation Comme nts ALBUMIN (test code = 1751-7) 4.3 G/DL See_Comment [Automated messa ge] The system which generated this result transmitted reference range: 3.5-5.2 G/DL. The reference range was not used to interpret this result as normal/abnormal. ALKALINE PHOSPHATASE (test code = 6768-6) 64 U/L See_Comment [Automated message] The system which generated this result transmitted reference range: 40-125 U/L. The reference range was not used to interpret this result as normal/abnormal. BILIRUBIN, TOTAL (test code = 1975-2) 0.5 MG/DL See_Comment [Automated message] The system which generated this result transmitted reference range: <=1.2 MG/DL. The reference range was not used to interpret this result as normal/abnormal. BUN (test code = 3094-0) 20 MG/DL See_Comment [Automated messa ge] The system which generated this result transmitted reference range: 8-23 MG/DL. The reference range was not used to interpret this result as normal/abnormal. CALCIUM (test code = 36578-6) 9.8 MG/DL See_Comment [Automated messa ge] The system which generated this result transmitted reference range: 8.5-10.5 MG/DL. The reference range was not used to interpret this result as normal/abnormal. CALC A/G RATIO (test code = 1759-0) 1.5 RATIO See_Comment [Automated messa ge] The system which generated this result transmitted reference range: 1.0-2.6 RATIO. The reference range was not used to interpret this result as normal/abnormal. CALC BUN/CREAT (test code = 3097-3) 19 RATIO See_Comment [Automated messa ge] The system which generated this result transmitted reference range: 6-28 RATIO. The reference range was not used to interpret this result as normal/abnormal. CALC GLOBULIN (test code = 42886-0) 2.8 G/DL See_Comment [Automated messa ge] The system which generated this result transmitted reference range: 1.9-3.7 G/DL. The reference range was not used to interpret this result as normal/abnormal. CARBON DIOXIDE (test code = 1963-8) 26 MEQ/L See_Comment [Automated messa ge] The system which generated this result transmitted reference range: 19-31 MEQ/L. The reference range was not used to interpret this result as normal/abnormal. CHLORIDE (test code = 2075-0) 101 MEQ/L See_Comment [Automated messa ge] The system which generated this result transmitted reference range: 95-107 MEQ/L. The reference range was not used to interpret this result as normal/abnormal. CREATININE (test code = 2160-0) 1.08 MG/DL See_Comment [Automated messa ge] The system which generated this result transmitted reference range: 0.80-1.40 MG/DL. The reference range was not used to interpret this result as normal/abnormal. eGFR (2020 CKD-EPI) (test code = 38917-1) 74 ML/MIN/1.73 See_Comment [Automated messa ge] The system which generated this result transmitted reference range: >60 ML/MIN/1.73. The reference range was not used to interpret this result as normal/abnormal. GLUCOSE (test code = 1558-6) 179 MG/DL See_Comment H [Automated messa ge] The system which generated this result transmitted reference range: 70-99 MG/DL. The reference range was not used to interpret this result as normal/abnormal. POTASSIUM (test code = 2823-3) 4.7 MEQ/L See_Comment [Automated messa ge] The system which generated this result transmitted reference range: 3.5-5.4 MEQ/L. The reference range was not used to interpret this result as normal/abnormal. PROTEIN, TOTAL (test code = 2885-2) 7.1 G/DL See_Comment [Automated messa ge] The system which generated this result transmitted reference range: 6.1-8.3 G/DL. The reference range was not used to interpret this result as normal/abnormal. AST (test code = 1920-8) 23 U/L See_Comment [Automated messa ge] The system which generated this result transmitted reference range: 9-50 U/L. The reference range was not used to interpret this result as normal/abnormal. ALT (test code = 1742-6) 20 U/L See_Comment [Automated messa ge] The system which generated this result transmitted reference range: 5-50 U/L. The reference range was not used to interpret this result as normal/abnormal. SODIUM (test code = 2951-2) 139 MEQ/L See_Comment [Automated messa ge] The system which generated this result transmitted reference range: 133-146 MEQ/L. The reference range was not used to interpret this result as normal/abnormal.
[2023-08-27] MEDS ORDERED: KETOROLAC 30 MG/ML INJ ONE (09:37)
[2023-08-27] MEDS ORDERED: dexAMETHasone 10 MG/ML VIAL ONE (09:37)
[2023-08-27] MEDS ORDERED: LIDOCAINE 4% PATCH ONE (09:38)
[2023-08-27] MEDS ORDERED: CYCLOBENZAPRINE 10 MG TAB ONE (09:38)
--- NOTE | 2023-08-27 10:37 | EDPHYS ---
Physician Documentation [facility] Name: Rush Palomino Age: 68 yrs Sex: Male : 1955 Arrival Date: 08/27/2023 Time: 09:08 Bed 17 Private MD: ED Physician Bret Ramirez HPI: 08/26 09:21 This 68 yrs old Male presents to ER via Unassigned with complaints of Neck Pain. sb4 09:21 The patient or guardian complains of an injury, pain, that is acute. The symptoms are sb4 located on the posterior cervical area. Onset: The symptoms/episode began/occurred 3 day(s) ago. The pain does not radiate. Modifying factors: The symptoms are alleviated by remaining still, the symptoms are aggravated by movement. 09:23 was working on a golf cart 3 days ago, believes he pulled something in his neck. has sb4 had pain for 3 days, is barely sleeping. took tramadol last night with some relief. Historical: - Allergies: : No Known Allergies; hb - Home Meds: :23 allopurinol 300 mg Oral tab 1 tab once daily [Active]; gabapentin 300 mg Oral cap 2 hb caps 2 times per day [Active]; metformin 500 mg Oral Tb24 2 tabs 2 times per day [Active]; montelukast 5 mg Oral chew 2 tabs once daily [Active]; sotalol 80 mg Oral tab 2 tabs 2 times per day [Active]; Xarelto 20 mg Oral tab 1 tab once daily [Active]; lisinopril 10 mg oral tablet daily [Active]; - PMHx: : Atrial Fib; Diabetes - NIDDM; Gout; Hep C (completed treatment); hb - Immunization history:: Adult Immunizations up to date. - Infectious Disease History:: Denies. - Social history:: Smoking status: Patient denies any tobacco usage or history of. ROS: 09:23 Constitutional: Negative for fever, chills, and weight loss, sb4 09:23 Neck: Positive for injury or acute deformity, pain with movement, :23 All other systems are negative, Exam: :23 Head/Face: Normocephalic, atraumatic. Eyes: Extra-ocular motions intact. Periorbital sb4 areas with no swelling, redness, or edema. ENT: Mucous membranes moist. Cardiovascular: Regular rate and rhythm with a normal S1 and S2. Respiratory: Lungs have equal breath sounds bilaterally, clear to auscultation and percussion. No rales, rhonchi or wheezes noted. No increased work of breathing, no retractions or nasal flaring. Abdomen/GI: Soft, non-tender, no distension. Skin: Warm, dry with normal turgor. Normal color with no rashes, no lesions, and no evidence of cellulitis. 09:23 Constitutional: The patient appears alert, awake, uncomfortable, 09:23 Neck: External neck: tenderness, that is moderate, of the left mid cervical area, ROM/movement: pain, that is moderate, with rotation to the left, with rotation to the right, with extension, Meningeal signs: are not present, nuchal rigidity, is not appreciated, Vital Signs: 09:22 BP 137 / 72; Pulse 88; Resp 16; Temp 98; Pulse Ox 100% ; Weight 120.2 kg; Height 6 ft. hb 1 in. ; Pain 8/10; 09:22 Body Mass Index 34.96 (120.20 kg, 185.42 cm) hb 09:22 Pain Scale: Adult hb MDM: 09:16 Patient medically screened. sb4 10:36 Data reviewed: vital signs, nurses notes, and as a result, I will discharge patient. sb4 Counseling: I had a detailed discussion with the patient and/or guardian regarding the historical points, exam findings, and any diagnostic results supporting the discharge/admit diagnosis, to return to the emergency department if symptoms worsen or persist or if there are any questions or concerns that arise at home. Administered Medications: 09:46 Drug: Lidoderm Topical Patch 5 % (700 mg/patch) 1 patches Topical once; leave on for 12 hb hours; cover most painful area; may cut into smaller pieces Route: Topical; Site: affected area; 11:10 Follow up: Response: No adverse reaction bp 09:48 Drug: Dexamethasone IM 10 mg IM once Route: IM; Site: right deltoid; hb 11:11 Follow up: Response: No adverse reaction bp 09:48 Drug: Ketorolac IM 30 mg IM once Route: IM; Site: left deltoid; hb 11:10 Follow up: Response: No adverse reaction bp 09:48 Drug: Cyclobenzaprine PO 10 mg PO once Route: PO; hb 11:10 Follow up: Response: No adverse reaction bp Disposition: 18:08 Co-signature as Attending Physician, Bret Ramirez MD I reviewed the patient's care rn provided by the Advanced Practice Provider and agree with the diagnosis and treatment plan. Disposition Summary: 08/27/23 10:37 Discharge Ordered Notes: Location: Home sb4 Problem: new sb4 Symptoms: have improved sb4 Condition: Stable sb4 Diagnosis - Strain of muscle, fascia and tendon at neck level, initial encounter sb4 Followup: sb4 - With: Private Physician - When: As needed - Reason: Recheck today's complaints, Re-evaluation by your physician Discharge Instructions: - Discharge Summary Sheet sb4 - Cervical Strain [facility] Sprain [facility] sb4 Forms: - Patient Portal Instructions sb4 - Leadership Thank You Letter sb4 Prescriptions: - lidocaine 4 % adhesive patch, medicated - apply 1 patch TRANSDERMAL route once may leave on for up to 12 hrs; 10 patch; sb4 Refills: 0, Product Selection Permitted - Cyclobenzaprine 10 mg Oral Tablet - take 1 tablet ORAL route every 8 hours As needed; 30 tablet; Refills: 0, sb4 Product Selection Permitted - Prednisone 20 mg Oral Tablet - take 2 tablets ORAL route once daily for 5 days; 10 tablet; Refills: 0, Product sb4 Selection Permitted Signatures: Bret Ramirez MD MD rn Baxter, Heather, RN RN hb Brown, Sophia, PA-C PA-C sb4 Rolo Kerr RN bp
--- NOTE | 2023-08-27 10:37 | ER ---
Nurse's Notes [facility] Name: Rush Palomino Age: 68 yrs Sex: Male : 1955 Arrival Date: 08/27/2023 Time: 09:08 Bed 17 Private MD: Diagnosis: Strain of muscle, fascia and tendon at neck level, initial encounter Presentation: 08/26 09:22 Chief complaint: Left upper back and neck pain after working on golf cart 3 days ago. hb Coronavirus screen: At this time, the client does not indicate any symptoms associated with coronavirus-19. Ebola Screen: No symptoms or risks identified at this time. Initial Sepsis Screen: Does the patient meet any 2 criteria? No. Patient's initial sepsis screen is negative. Does the patient have a suspected source of infection? No. Patient's initial sepsis screen is negative. Risk Assessment: Do you want to hurt yourself or someone else? Patient reports no desire to harm self or others. Onset of symptoms was August 24, 2023. 09:22 Method Of Arrival: Ambulatory 09: Acuity: JASKARAN 4 hb Triage Assessment: General: Appears uncomfortable, Behavior is appropriate for age. Pain: Complains of bp pain in left mid cervical area and back. Musculoskeletal: Circulation, motion, and sensation intact. Range of motion: intact in all extremities. Historical: - Allergies: No Known Allergies; hb - Home Meds: allopurinol 300 mg Oral tab 1 tab once daily [Active]; gabapentin 300 mg Oral cap 2 hb caps 2 times per day [Active]; metformin 500 mg Oral Tb24 2 tabs 2 times per day [Active]; montelukast 5 mg Oral chew 2 tabs once daily [Active]; sotalol 80 mg Oral tab 2 tabs 2 times per day [Active]; Xarelto 20 mg Oral tab 1 tab once daily [Active]; lisinopril 10 mg oral tablet daily [Active]; - PMHx: Atrial Fib; Diabetes - NIDDM; Gout; Hep C (completed treatment); hb - Immunization history:: Adult Immunizations up to date. - Infectious Disease History:: Denies. - Social history:: Smoking status: Patient denies any tobacco usage or history of. Screenin:30 [facility] ED Fall Risk Assessment (Adult) History of falling in the last 3 months, bp including since admission No falls in past 3 months (0 pts) Confusion or Disorientation No (0 pts) Intoxicated or Sedated No (0 pts) Impaired Gait No (0 pts) Mobility Assist Device Used No (0 pt) Altered Elimination No (0 pt) Score/Fall Risk Level 0 - 2 = Low Risk. Abuse screen: Denies threats or abuse. Denies injuries from another. Nutritional screening: No deficits noted. Tuberculosis screening: No symptoms or risk factors identified. Assessment: 09:30 General: Appears uncomfortable, Behavior is appropriate for age. Neuro: Dialysis Clinical Manager are equal bp bilaterally Moves all extremities. Full function. Vital Signs: 09:22 BP 137 / 72; Pulse 88; Resp 16; Temp 98; Pulse Ox 100% ; Weight 120.2 kg; Height 6 ft. hb 1 in. ; Pain 8/10; 09:22 Body Mass Index 34.96 (120.20 kg, 185.42 cm) hb 09:22 Pain Scale: Adult hb ED Course: 09:12 Patient arrived in ED. gm2 09:13 Veronique Be PA-C is PHCP. sb4 09:13 Bret Ramirez MD is Attending Physician. sb4 09:18 Rolo Kerr, CHERYL is Primary Nurse. bp 09:23 Triage completed. hb 09:25 Arm band placed on. hb 09:30 Patient has correct armband on for positive identification. Provided Education on: N/A. bp 11:10 No provider procedures requiring assistance completed. Patient did not have IV access bp during this emergency room visit. Administered Medications: 09:46 Drug: Lidoderm Topical Patch 5 % (700 mg/patch) 1 patches Topical once; leave on for 12 hb hours; cover most painful area; may cut into smaller pieces Route: Topical; Site: affected area; 11:10 Follow up: Response: No adverse reaction bp 09:48 Drug: Dexamethasone IM 10 mg IM once Route: IM; Site: right deltoid; hb 11:11 Follow up: Response: No adverse reaction bp 09:48 Drug: Ketorolac IM 30 mg IM once Route: IM; Site: left deltoid; hb 11:10 Follow up: Response: No adverse reaction bp 09:48 Drug: Cyclobenzaprine PO 10 mg PO once Route: PO; hb 11:10 Follow up: Response: No adverse reaction bp Medication: 09:30 VIS not applicable for this client. bp Outcome: 10:37 Discharge ordered by MD. dong 11:10 Discharged to home ambulatory, with family, bp 11:10 Condition: stable 11:10 Discharge instructions given to patient, Instructed on discharge instructions, follow up and referral plans. medication usage, Demonstrated understanding of instructions, follow-up care, medications, Prescriptions given X 3, 11:11 Patient left the ED. bp Signatures: Princess Gracia RN RN Rolo Jordan RN RN Veronique Mullins, PA-C PA-C sb4 Disha Neumann gm2
[2023-08-27 11:19] VITALS: BP 137/72; TEMP 98; O2SAT 100
== END 2023-08-27 11:11 | disposition home or self-care (01) ==
LOC: ER 09:08
DX: S16.1XXA Strain of muscle, fascia and tendon at neck level, initial encounter (principal)
CPT/HCPCS: J2001; J1100; 96372; 99284